=== PATIENT | female | born 1940 | race Caucasian/White ===

== ENCOUNTER 2016-06-11 00:43 | Emergency (ER) | payer MEDICARE, MEDICAID ==
[~2016-06-11] VITALS: Ht 157.5 cm; Wt 56.7 kg
[~2016-06-11 00:43] MED LIST: AC325T PO; ALN70T PO; AMLO5TAB2 PO; ATEN-147 GT; ATEN50TA PO; ATOR20TA66 PO; BENZ200C25 PO; CALC-20 PO; DCS100C PO; DEXT1DRO7 OU; DIPH25TA82 PO; DONE5TAB8 PO; EZET10TA5 PO; EZET1TAB27 PO; FAMO20TA13 PO; FURO20TA4 PO; HYDR-3857 PO; HYDR118S10 PO; HYDR1TAB PO; Hydrocodone Bit/Acetaminophen PO; INSASP10V IM; INSASP10V SQ; LANS15CA5 PO; LEVE500T6 PO; LEVO500T80 PO; LEVO50TA63 PO; LEVO75TA6 PO; LIRA0.6P3 SQ; LOSA1TAB3 PO; LSRT50T PO; LVT.15T PO; MAGN-47 PO; MELO7.5T PO; METF1000 PO; METF500T4 PO; MTF500T PO; NITR-65 PO; OMEP20CA12 PO; PGLT30T PO; ROSI2TAB11 PO; SCR1T1 PO; SENN1TAB76 PO; SITA100T PO; SMV20T PO; TRAM50TA2 PO; ZLP5T PO; [UNRECOGNIZED DRUG - CODE] IJ
--- OUTSIDE RECORDS SUMMARY | 2016-06-11 00:49 | XMS REPORT | Continuity of Care Document ---
Author Author 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 If you do not see the information that you expected, contact Release of Information in the Health Information Management department at [phone] for further assistance in locating additional records.[facility] Active Allergies and Adverse Reactions Allergen Noted Date Severity Reactions Comments Aspirin 11/19/2011 STOMACH UPSET Ibuprofen 11/19/2011 HIVES Lisinopril 11/20/2011 COUGH Current Medications Prescription Sig. Disp. Refills Start End Date Status Date levothyroxine (SYNTHROID) Take 150 mcg by mouth Active 150 mcg tablet daily. sitaGLIPtin (JANUVIA) 100 Take 100 mg by mouth Active mg Tab tablet daily. calcium carbonate/vitamin Take 1 Tab by mouth three Active D-3 (OSCAL-500+D) 1250 times daily with meals. mg/200 unit tablet Calcium Carb 1250mg delivers 500mg elemental Ca alendronate (FOSAMAX) 70 Take 70 mg by mouth every Active mg tablet 7 days. Acetaminophen 650 mg Tab Take 1 Tab by mouth every 30 Tab 11/23/19 Active 4 hours as needed. 12 levETIRAcetam (KEPPRA) Take 1 Tab by mouth twice 11/23/19 Active 500 mg tablet daily. 12 HYDROcodone/acetaminophen Take 1 Tab by mouth every 30 Tab 0 11/23/19 Active (VICODIN) 5/500 mg tablet 4 hours as needed for 12 Pain. diphenhydrAMINE Take 1 Cap by mouth every 30 Cap 11/23/19 Active (BENADRYL) 25 mg capsule 4 hours as needed. 12 metformin (GLUCOPHAGE) Take 1 Tab by mouth twice 180 Tab 11/23/19 Active 1,000 mg tablet daily with meals. 12 artificial Apply 1 Drop to both eyes 11/23/19 Active tears/hypromellose four times daily. 12 (ISOPTO TEARS) 0.5 % ophthalmic solution HEPARIN SODIUM,PORCINE/PF Inject 0.5 mL into 11/23/19 Active (HEPARIN (PORCINE) PF) area(s) as directed every 12 5,000 units Syrg 8 hours. famotidine (PEPCID) 20 mg Take 1 Tab by mouth twice 180 Tab 11/23/19 Active tablet daily. 12 insulin aspart (NOVOLOG) Inject 2-14 Units into 3 box 11/23/19 Active 100 unit/mL area(s) as directed as 12 Needed (correlation with ACHS or q6h POC glucose checks). insulin aspart (NOVOLOG) Inject 4-16 Units into 3 box 11/23/19 Active 100 unit/mL area(s) as directed three 12 times daily with meals. docusate (COLACE) 100 mg Take 1 Cap by mouth twice 180 Cap 11/23/19 Active capsule daily. 12 milk of magnesia (CONC) Take 10 mL by mouth 11/23/19 Active 2,400 mg/10 mL oral daily. 12 suspension senna/docusate Take 1 Tab by mouth twice 11/23/19 Active (SENOKOT-S) 8.6/50 mg daily. 12 tablet ezetimibe (ZETIA) 10 mg Take 1 Tab by mouth at 90 Tab 3 11/23/19 Active tablet bedtime daily. 12 simvastatin (ZOCOR) 20 mg Take 1 Tab by mouth at 90 Tab 3 11/23/19 Active tablet bedtime daily. 12 Active Problems Problem Noted Date HTN (hypertension) 11/19/2011 DM (diabetes mellitus) ([facility]) 11/19/2011 Hypothyroidism 11/19/2011 SDH (subdural hematoma) ([facility]) 11/19/2011 Overview: Social History Tobacco Use Types Packs/Day Years Used Date Never Smoker Alcohol Use Drinks/Week oz/Week Comments No Last Filed Vital Signs Vital Sign Reading Time Taken Blood Pressure 122/72 11/23/2011 7:00 AM CDT Pulse 57 11/23/2011 7:00 AM CDT Temperature 36.7 C (98 F) 11/23/2011 7:00 AM CDT Respiratory Rate - - Height 1.575 m (5' 2.01") 11/20/2011 3:20 PM CDT Weight 73.029 kg (161 lb) 11/20/2011 3:20 PM CDT Body Mass Index 29.44 11/20/2011 3:20 PM CDT Oxygen Saturation 97% 11/23/2011 7:00 AM CDT Plan of Care Health Maintenance Due Date Last Done Comments Physical (Comprehensive) 1949 Exam Pertussis Vaccine 1953 Tetanus Vaccine 1959 Dilated Eye Exam 1960 Foot Exam 1960 Microalbumin 1960 Breast Cancer Screening 1982 Colorectal Cancer 1992 Screening Shingles Vaccine 2002 Osteoporosis Screening 2007 Prevnar/Pneumovax (#1) 2007 Hba1c 05/21/2012 11/20/2011 Influenza Vaccine 02/02/2016 Results from Last 3 Months Not on file
[2016-06-11] MEDS ORDERED: ALBU2.5V4 (00:51)
[2016-06-11] MEDS ORDERED: AZIT250T5 (00:51)
[2016-06-11] MEDS ORDERED: fentaNYL INJECTION 100 MCG/2 ML AMP IVP ONE (01:00)
[2016-06-11 01:07] LABS: BASOPHILS # (AUTO) 0.1 10^3/uL (0.0-0.1); BASOPHILS % (AUTO) 1 % (0-10); EOSINOPHILS # (AUTO) 0.5 10^3/uL (0.0-0.3); EOSINOPHILS % (AUTO) 7 % (0-10); LYMPHOCYTES # (AUTO) 2.6 X 10^3 (1.0-4.0); LYMPHOCYTES % (AUTO) 33 % (12-44); MEAN CORPUSCULAR HEMOGLOBIN 31 PG (25-34); MEAN CORPUSCULAR HGB CONC 36 G/DL (32-36); MEAN CORPUSCULAR VOLUME 86 FL (80-99); MEAN PLATELET VOLUME 10.3 FL (7.4-10.4); MONOCYTES # (AUTO) 0.9 X 10^3 (0.0-1.0); MONOCYTES % (AUTO) 11 % (0-12); NEUTROPHILS # (AUTO) 3.9 X 10^3 (1.8-7.8); NEUTROPHILS % (AUTO) 49 % (42-75); PLATELET COUNT 361 10^3/uL (130-400); RED BLOOD COUNT 4.27 10^6/uL (4.35-5.85); RED CELL DISTRIBUTION WIDTH 12.1 % (10.0-14.5); WHITE BLOOD COUNT 7.9 10^3/uL (4.3-11.0)
[2016-06-11 01:23] LABS: ALANINE AMINOTRANSFERASE 10 U/L (0-55); ALBUMIN 3.9 G/DL (3.2-4.5); ANION GAP 11 MMOL/L (5-14); ASPARTATE AMINO TRANSFERASE 13 U/L (5-34); BILIRUBIN,TOTAL 0.3 MG/DL (0.1-1.0); BLOOD UREA NITROGEN 10 MG/DL (7-18); BUN/CREATININE RATIO 11; CALCIUM 9.1 MG/DL (8.5-10.1); CARBON DIOXIDE 24 MMOL/L (21-32); CHLORIDE 92 MMOL/L (98-107); CREATININE SERUM 0.88 MG/DL (0.60-1.30); GFR ESTIMATED > 60; GLUCOSE 226 MG/DL (70-105); POTASSIUM 4.1 MMOL/L (3.6-5.0); SODIUM 127 MMOL/L (135-145); TOTAL PROTEIN 7.1 G/DL (6.4-8.2)
[2016-06-11 01:59] LABS: THYROID STIMULATING HORMONE 43.21 UIU/ML (0.35-4.94)
[2016-06-11] MEDS ORDERED: NS IV 500 ML 500 ML IV ONE (02:30)
[2016-06-11] MEDS ORDERED: ACETAMINOPHEN 325 MG TABLET/CAPLET (TYLENOL) PO ONE (02:45)
[2016-06-11] MEDS ORDERED: amLODIPine 5 MG (NORVASC) TAB PO ONE (02:45)
[2016-06-11 03:48] LABS: BILIRUBIN,URINE NEGATIVE (NEGATIVE); KETONES,URINE NEGATIVE (NEGATIVE); LEUKOCYTE ESTERASE ,URINE 3+ (NEGATIVE); NITRITE,URINE NEGATIVE (NEGATIVE); PH,URINE 6 (5-9); PROTEIN,URINE 3+ (NEGATIVE); UROBILINOGEN,URINE NORMAL (NORMAL)
[2016-06-11] MEDS ORDERED: cefTRIAXone 1 GM (ROCEPHIN) VIAL ONE (04:13)
[2016-06-11] MEDS ORDERED: NORMAL SALINE (BAXTER MINI) 50 ML IV ONE (04:13)
[2016-06-11] MEDS ORDERED: cefTRIAXone INJECTION 1,000 MG in NORMAL SALINE (BAXTER MINI) 50 ML IV ONE (04:15)
--- NOTE | 2016-06-11 04:26 | ED Fall/Injury ---
General Chief Complaint: Trauma-Non Activation Stated Complaint: FALL Nursing Triage Note: Patient brought from [facility] by EMS. patient fell while transferring self to W/C from her bed. patient unsure of LOC. Patient c/o head/neck and L shoulder pain. Patient a&0x3 on arrival. c-collar in place Source: patient, EMS, senior living records Exam Limitations: no limitations History of Present Illness Time seen by provider: 00:50 Initial Comments This 75-year-old woman presents to the emergency room from [facility] after injuring herself in a fall. She was transferring herself from bed to wheelchair. She hit her head and complains of neck pain and left shoulder pain. She is presently on antibiotics for pneumonia which were started on June 06. She is alert and oriented on assessment. C-collar is in place. She arrives by EMS. She is uncertain of loss of consciousness. Allergies and Home Medications Allergies Coded Allergies: Iodinated Contrast Media - IV Dye (Verified Allergy, Intermediate, hives, 11/23/11) ibuprofen (Verified Allergy, Mild, UPSET STOMACH, 11/26/11) gabapentin (Verified Allergy, Unknown, 05/20/13) lisinopril (Verified Allergy, Unknown, 12/03/05) aspirin (Verified Adverse Reaction, Intermediate, anaphylactic, 11/23/11) Home Medications Acetaminophen 325 Mg Tablet 650 MG PO Q4H PRN PRN PAIN (Reported) TAKES 2 (325MG) TABLETS Albuterol Sulfate 2.5 Mg/3 Ml Vial.neb #90 (Reported) Amlodipine Besylate 5 Mg Tablet #30 5 MG PO DAILY Prescribed by: NALLELY HURST on 08/24/15 1348 Amlodipine Besylate 5 Mg Tablet #30 5 MG PO DAILY Prescribed by: COBY WHITE on 06/11/16 0427 Atenolol 50 Mg Tablet #60 100 MG PO DAILY Prescribed by: NALLELY HURST on 08/24/15 1348 Azithromycin 250 Mg Tablet #6 (Reported) Cephalexin 500 Mg Capsule #30 500 MG PO TID Prescribed by: COBY WHITE on 06/11/16 0427 Docusate Sodium 100 Mg Capsule 100 MG PO BID PRN PRN CONSTIPATION (Reported) Donepezil HCl 5 Mg Tablet #30 5 MG PO HS Prescribed by: NALLELY HURST on 08/24/15 1348 Levothyroxine Sodium 75 Mcg Tablet 75 MCG PO DAILY (Reported) Liraglutide 0.6 Mg/0.1 Ml Pen.injctr 1.2 MG SQ DAILY (Reported) Metformin HCl 500 Mg Tablet 500 MG PO BID (Reported) Senna 1 Ea Tablet 1 TAB PO BID PRN PRN CONSTIPATION (Reported) Constitutional: no symptoms reported Eyes: No Symptoms Reported Ears, Nose, Mouth, Throat: no symptoms reported Respiratory: see HPI Cardiovascular: no symptoms reported Gastrointestinal: no symptoms reported Genitourinary: no symptoms reported Musculoskeletal: see HPI Skin: no symptoms reported Past Ufjtbce-Lpjtzk-Xudoot Hx Patient Social History Alcohol Use: Denies Use Recreational Drug Use: No Smoking Status: Never a Smoker Former Smoker/When Quit: Jun 03, 1962 Recent Foreign Travel: No Contact w/Someone Who Travel: No Recent Infectious Disease Expo: No Recent Hopitalizations: Yes Physical Abuse Screen: No Sexual Abuse: No Immunizations Up To Date Tetanus Booster (TDap): Less than 5yrs Date of Pneumonia Vaccine: Mar 03, 2013 Seasonal Allergies Seasonal Allergies: No Surgeries HX Surgeries: Yes (CARPAL TUNNEL, CARDIAC CATH-STENT PLACEMENT, cataracts) Surgeries: Appendectomy, Cardiac, Coronary Stent, Gallbladder, Hysterectomy, Orthopedic Respiratory Hx Respiratory Disorders: Yes Respiratory Disorders: Pneumonia Cardiovascular Hx Cardiac Disorders: Yes (cardiac stent) Cardiac Disorders: Coronary Artery Disease, High Cholesterol, Hypertension Neurological Hx Neurological Disorders: Yes (SUBDURAL HEMATOMA 2011--NO SURGERY) Neurological Disorders: Stroke Reproductive System Hx Reproductive Disorders: No Genitourinary Hx Genitourinary Disorders: Yes Genitourinary Disorders: UTI-Chronic Gastrointestinal Hx Gastrointestinal Disorders: Yes Gastrointestinal Disorders: Gastroesophageal Reflux, Chronic Constipation, Ulcer Musculoskeletal Hx Musculoskeletal Disorders: Yes (arm fx as child, compression fracture of T11 ) Musculoskeletal Disorders: Osteoporosis, Arthritis, Chronic Back Pain, Fractures Endocrine Hx Endocrine Disorders: Yes Endocrine Disorders: Diabetes, Insulin dep, Hypothyroidsim HEENT HX ENT Disorders: Yes (cataracts removed) HEENT Disorders: Cataract Cancer Hx Cancer: No Psychosocial Hx Psychiatric Problems: No Integumentary HX Skin/Integumentary Disorder: No Blood Transfusions Hx Blood Disorders: No Family Medical History Significant Family History: No Pertinent Family Hx Family Medial History: Physical Exam Vital Signs Capillary Refill : Less Than 3 Seconds General Appearance: WD/WN no apparent distress HEENT: normal ENT inspection pharynx normal Neck: non-tender normal inspection other (c-collar in place) Cardiovascular: regular rate, rhythm no edema no murmur Respiratory: lungs clear normal breath sounds no respiratory distress no accessory muscle use Gastrointestinal: normal bowel sounds non tender soft Back: normal inspection vertebral tenderness (scattered tenderness over the spine, exacerbation of chronic) Extremities: other (soreness in the left shoulder but good active range of motion) Neurologic/Psychiatric: graphite pan drier tender II-XII nml as tested no motor/sensory deficits alert normal mood/affect oriented x 3 Skin: normal color warm/dry Skyla Coma Score Best Eye Response: (4) Open Spontaneously Best Verbal Response: (5) Oriented Best Motor Response: (6) Obeys Commands [place] Total: 15 Progress/Results/Core Measures Results/Orders Lab Results Laboratory Tests Test 06/11/16 00:51 06/11/16 03:43 Range/Units Alanine Aminotransferase (ALT/SGPT) 10 0-55 U/L Albumin 3.9 3.2-4.5 G/DL Alkaline Phosphatase 60 40-136 U/L Anion Gap 11 5-14 MMOL/L Aspartate Amino Transf (AST/SGOT) 13 5-34 U/L BUN/Creatinine Ratio 11 Basophils # (Auto) 0.1 0.0-0.1 10^3/uL Basophils (%) (Auto) 1 0-10 % Blood Urea Nitrogen 10 7-18 MG/DL Calcium Level 9.1 8.5-10.1 MG/DL Carbon Dioxide Level 24 21-32 MMOL/L Chloride Level 92 L 98-107 MMOL/L Creatinine 0.88 0.60-1.30 MG/DL Eosinophils # (Auto) 0.5 H 0.0-0.3 10^3/uL Eosinophils (%) (Auto) 7 0-10 % Estimat Glomerular Filtration Rate > 60 Free Thyroxine 0.90 0.70-1.48 NG/DL Glucose Level 226 H 70-105 MG/DL Hematocrit 37 35-52 % Hemoglobin 13.3 11.5-16.0 G/DL Lymphocytes # (Auto) 2.6 1.0-4.0 X 10^3 Lymphocytes (%) (Auto) 33 12-44 % Mean Corpuscular Hemoglobin 31 25-34 PG Mean Corpuscular Hemoglobin Concent 36 32-36 G/DL Mean Corpuscular Volume 86 80-99 FL Mean Platelet Volume 10.3 7.4-10.4 FL Monocytes # (Auto) 0.9 0.0-1.0 X 10^3 Monocytes (%) (Auto) 11 0-12 % Neutrophils # (Auto) 3.9 1.8-7.8 X 10^3 Neutrophils (%) (Auto) 49 42-75 % Platelet Count 361 130-400 10^3/uL Potassium Level 4.1 3.6-5.0 MMOL/L Red Blood Count 4.27 L 4.35-5.85 10^6/uL Red Cell Distribution Width 12.1 10.0-14.5 % Sodium Level 127 L 135-145 MMOL/L Thyroid Stimulating Hormone (TSH) 43.21 H 0.35-4.94 UIU/ML Total Bilirubin 0.3 0.1-1.0 MG/DL Total Protein 7.1 6.4-8.2 G/DL White Blood Count 7.9 4.3-11.0 10^3/uL Urine Bacteria FEW H /HPF Urine Bilirubin NEGATIVE NEGATIVE Urine Casts NONE /LPF Urine Clarity CLEAR Urine Color YELLOW Urine Crystals NONE /LPF Urine Culture Indicated YES Urine Glucose (UA) 2+ H NEGATIVE Urine Ketones NEGATIVE NEGATIVE Urine Leukocyte Esterase 3+ H NEGATIVE Urine Mucus NEGATIVE /LPF Urine Nitrite NEGATIVE NEGATIVE Urine Protein 3+ H NEGATIVE Urine RBC 0-2 /HPF Urine RBC (Auto) NEGATIVE NEGATIVE Urine Specific [place] 1.015 L 1.016-1.022 Urine Squamous Epithelial Cells 10-25 H /HPF Urine Urobilinogen NORMAL NORMAL MG/DL Urine WBC 10-25 H /HPF Urine pH 6 5-9 Micro Results Microbiology 06/11/16 Urine Culture - Final, Complete Streptococcus Viridans My Orders Orders-COBY PARRY MD Saline Lock/Iv-Start (06/11/16 01:00) Ct Head/Cervical Spine Wo (06/11/16 01:00) Cbc With Automated Diff (06/11/16 01:00) Comprehensive Metabolic Panel (06/11/16 01:00) Ua Culture If Indicated (06/11/16 01:00) Chest 1 View, Ap/Pa Only (06/11/16 01:00) Pelvis (06/11/16 01:00) Fentanyl Injection (Sublimaze Injection (06/11/16 01:00) Ct Thoracic/Lumbar Spine Wo (06/11/16 01:21) Thyroid Stimulating Hormone (06/11/16 01:22) Free T4 (Free Thyroxine) (06/11/16 01:22) Ns Iv 500 Ml (Sodium Chloride 0.9%) (06/11/16 02:30) Acetaminophen Tablet/Caplet (Tylenol T (06/11/16 02:45) Amlodipine Tablet (Norvasc Tablet) (06/11/16 02:45) Urine Culture (06/11/16 03:43) Ceftriaxone Injection (Rocephin Injectio (06/11/16 04:15) Ceftriaxone Injection (Rocephin Injectio (06/11/16 04:13) Normal Saline ([place] Mini) (Ns ([place] (06/11/16 04:13) Iv Infusion <= First Hr Ed (06/11/16 ) Medications Given in ED Vital Signs/I&O Blood Pressure Mean: 151 Progress Note : Progress Note Patient's imaging failed to reveal any evidence of acute bony injury or intracranial injury. Pain was treated with fentanyl. Patient was able to ambulate to the bathroom. Amlodipine was ordered for treatment of her hypertensive urgency. Blood pressure was improving before dismissal. Patient had mild hyponatremia and was treated with IV normal saline. Urinary tract infection was treated with Rocephin to be followed by Crista. Incidental adrenal nodule was noted on CT. Thyroid dysfunction was noted. Diagnostic Imaging Diagonstic Imaging: CT Plain Films/CT/US/NM/MRI: c-spine, head Comments CT head and C-spine viewed by me and stat rad report reviewed. No bony or intracranial injury identified. Diagonstic Imaging: CT Plain Films/CT/US/NM/MRI: other (spine) Comments Spine CT viewed by me and stat rad report reviewed. No acute injuries identified. Diagonstic Imaging: Xray Plain Films/CT/US/NM/MRI: chest Comments Chest x-ray viewed by me. Report not yet available. No acute abnormalities appreciated. Diagonstic Imaging: Xray Plain Films/CT/US/NM/MRI: pelvis Comments Pelvis x-ray viewed by me. Report not yet available. No acute abnormalities appreciated. Departure Impression Impression: Primary Impression: Fall on same level Qualified Code: W18.30XA - Fall on same level, unspecified, initial encounter Additional Impressions: Minor head injury Qualified Code: S00.90XA - Unspecified superficial injury of unspecified part of head, initial encounter Urinary tract infection Qualified Code: N39.0 - Urinary tract infection, site not specified Exacerbation of chronic back pain Hypertensive urgency Hyponatremia Thyroid dysfunction incidental adrenal nodule Disposition: HOME, SELF-CARE Condition: Improved Departure-Patient Inst. Decision time for Depature: 04:15 Referrals: NO,LOCAL PHYSICIAN (PCP/Family) Primary Care Physician Patient Instructions: Minor Head Injury (DC), Urinary Tract Infections in Adults Add. Discharge Instructions: Complete your antibiotics as prescribed. Have your primary care provider's office review your urine cultures in 48 hours. Your primary care provider's office also needs to review your labs and make any necessary medication changes. Start Norvasc as prescribed. Return to emergency room with worsening symptoms. All discharge instructions reviewed with patient and/or family. Voiced understanding. Scripts Cephalexin (Keflex)500 Mg [id number] Mg PO TID #30 CAP Prov:COBY PARRY MD 06/11/16 Amlodipine Besylate (Norvasc)5 Mg Tablet5 Mg PO DAILY #30 TAB Prov:COBY PARRY MD 06/11/16 Copy Copies To 1: KAYLEE BATISTA MD, JOSHUA T MD Jun 11, 2016 04:26
[2016-06-11] MEDS ORDERED: AMLO5TAB4 PO (04:27)
[2016-06-11] MEDS ORDERED: CEPH-507 PO (04:27)
[2016-06-11 04:55] VITALS: BP 183/79
--- NOTE | 2016-06-11 06:11 | Diagnostic Imaging Report ---
Clinical indication: Patient status post fall while transferring self to wood chair from bed. Unsure of loss of consciousness. Patient complains of head and neck pain and left shoulder pain. Exam: Head CT without IV contrast. Axial CT scan of the cervical spine with sagittal and coronal reformations. Comparison: CT scan of the head and cervical spine without IV contrast dated 08/21/2015. Findings: Head CT: There is no evidence of acute cerebral infarct, intracranial hemorrhage, or gross mass effect. 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 Again seen patchy confluent areas of low-attenuation white matter changes throughout both cerebral hemispheres, likely representing chronic small vessel ischemic disease. There is normal colon-white matter distinction. The brain parenchymal volume appears appropriate for patient's age. There is no significant midline shift or herniation. There is no evidence of hydrocephalus. The basal cisterns are unremarkable. The skull, extracranial soft tissue, and orbits are unremarkable. There is mild mucosal thickening involving both maxillary sinuses, and ethmoid sinus. Cervical spine: There is no evidence of acute cervical spine fracture or dislocation. There is stable degenerative spurs involving the cervical spine with posterior disc osteophyte complexes seen from the C2-C6 levels. There is at least mild to moderate central canal narrowing. Prominent slime-odontoid pannus is again seen. There is no prevertebral soft tissue swelling. The visualized lung apices are unremarkable. Impression: 1: Stable CT scan of the brain with no evidence of acute intracranial process. 2: Stable cervical spine degenerative disease with no acute fracture or dislocation. I agree with [employer] report. Dictated by: Dictated on workstation # [id number]
--- NOTE | 2016-06-11 07:36 | Diagnostic Imaging Report ---
Clinical indication: Patient fell while transferring self into wheelchair from bed. Exam: Axial CT scan of the thoracic and lumbar spine performed without IV contrast. Sagittal and coronal reformations were performed. Bone and soft tissue windows were created. Comparison: X-ray of the thoracic and lumbar spine dated 04/28/2014. Findings: There is no acute thoracic or lumbar fracture or dislocation. There is chronic compression fracture deformity of the T11 vertebral body which demonstrates roughly 25% loss of height. There is also roughly 2 mm of retropulsion of the upper T11 vertebral body causing mild central canal stenosis. There are moderately hypertrophic spurs seen throughout the thoracic spine. There is also bilateral facet arthropathy. Besides the T10-T11 level, there is no significant central canal narrowing. There are areas of mild neural foramen narrowing involving the mid to lower thoracic spine. There is lumbar spine degenerative disease with hypertrophic spurs anteriorly which is worse at the L2-3 level. There is endplate irregularity and moderate loss of intervertebral disc height at the L2-3 level with suggestion of diffuse disc bulge. There is at least mild to moderate central canal narrowing and moderate to severe right neural foramen narrowing, and mild to moderate left neural foramen narrowing at the L2-3 level. There is mild to moderate L4-L5 bilateral neural foramen narrowing. There is L4-5 laminectomy changes seen. There is multilevel facet arthropathy. There is moderate to severe loss of intervertebral disc height at the L5-S1 level. There is no significant paraspinal soft tissue abnormality. There is degenerative sclerosis of both sacroiliac joints. There is mild dependent atelectasis involving both lung bases. There is colonic diverticula with no CT evidence of diverticulitis. Hiatal hernia seen. Otherwise, the visualized portions of the mediastinum, abdomen and pelvis show no significant abnormality. Impression: 1: There is no evidence of acute thoracic spine or lumbar spine fracture or dislocation. 2: There is a chronic compression deformity of the T11 vertebral body. 3: There is multilevel thoracic and lumbar spine degenerative disease. I agree with [employer] report. Dictated by: Dictated on workstation # [id number]
--- NOTE | 2016-06-11 07:42 | Diagnostic Imaging Report ---
CLINICAL INDICATION: Patient status post fall while transferring self to wheelchair from bed. Patient unsure of loss of consciousness. Exam: X-ray of the pelvis AP view. Comparison: None. FINDINGS: There is osteopenia and bowel gas which limits evaluation of bony detail. There is no evidence of acute fracture or dislocation. There are chronic bony healing changes of the right superior and inferior pubic rami regions. Sacroiliac joints are unremarkable. There are degenerative spurs involving the lower lumbar spine. Visualized portion of the pelvis and sacrum are unremarkable. IMPRESSION: 1: Limited exam due to overlying bowel gas and osteopenia. 2: There is no gross evidence of acute fracture or dislocation. Dictated by: Dictated on workstation # [id number]
--- NOTE | 2016-06-11 07:43 | Diagnostic Imaging Report ---
CLINICAL INDICATION: Patient status post fall when trying to transfer self to wheelchair from bed. EXAM: Portable chest x-ray upright view. COMPARISONS: Chest x-ray dated 08/21/2015. FINDINGS: Lungs/pleura: Stable calcified granuloma overlying the left lower lung field. Otherwise, lungs are clear. There is no pneumothorax. There is no pleural effusion. Mediastinum: Unremarkable. Pulmonary vasculature: Unremarkable. Heart: Unremarkable. Bones/extrathoracic soft tissue: There are hypertrophic spurs seen throughout the spine. IMPRESSION: Stable chest x-ray exam with no interval radiographic evidence of acute cardiopulmonary process or acute traumatic finding. Dictated by: Dictated on workstation # [id number]
== END 2016-06-11 04:56 ==
LOC: EDUNIT# 00:43 → ER 00:45
DX: S09.90XA Unspecified injury of head, initial encounter (principal); S19.9XXA Unspecified injury of neck, initial encounter; N39.0 Urinary tract infection, site not specified; I16.0 Hypertensive urgency; E87.1 Hypo-osmolality and hyponatremia; M47.812 Spondylosis without myelopathy or radiculopathy, cervical region; M47.814 Spondylosis without myelopathy or radiculopathy, thoracic region; M47.816 Spondylosis without myelopathy or radiculopathy, lumbar region; G89.29 Other chronic pain; E11.9 Type 2 diabetes mellitus without complications; Z79.84 Long term (current) use of oral hypoglycemic drugs; Z79.899 Other long term (current) drug therapy; Z95.5 Presence of coronary angioplasty implant and graft; W05.0XXA Fall from non-moving wheelchair, initial encounter; Y92.122 Bedroom in nursing home as the place of occurrence of the external cause; Y99.8 Other external cause status
CPT/HCPCS: 36415; 70450; 71010; 72125; 72128; 72131; 72170; 80053; 81000; 84439; 84443; 85025; 87088; 96361; 96365; 96375

== ENCOUNTER 2016-09-13 20:00 | Emergency (ER) | payer MEDICARE, MEDICAID ==
[~2016-09-13] VITALS: Ht 157.5 cm; Wt 72.6 kg
[~2016-09-13 20:00] MED LIST changes: +ALBU2.5V4; +AMLO5TAB4 PO; +AZIT250T5; +CEPH-507 PO
--- NOTE | 2016-09-13 20:52 | Diagnostic Imaging Report ---
INDICATION: Fall with pelvic pain. TECHNIQUE: AP pelvis obtained at 8:50 p.m. FINDINGS: There is osteopenia. There is no acute fracture or acute bony abnormality. There is no change from 06/11/2016. IMPRESSION: No acute abnormality in the pelvis. Dictated by: Dictated on workstation # [id number]
--- NOTE | 2016-09-13 20:53 | Diagnostic Imaging Report ---
INDICATION: Fall with left-sided chest pain. TECHNIQUE: Frontal chest obtained at 8:49 p.m. FINDINGS: Heart is mildly enlarged. The lungs are clear. There is no pneumothorax or pleural fluid. There is a calcified granuloma in the left lung base. The findings are stable when compared with 06/11/2016. IMPRESSION: Cardiomegaly. No acute infiltrate or edema. Stable calcified granuloma in the left lung base. Dictated by: Dictated on workstation # [id number]
--- NOTE | 2016-09-13 20:57 | Diagnostic Imaging Report ---
INDICATION: Fall with head and neck pain. EXAMINATION: CT of the head and cervical spine without contrast. CT BRAIN FINDINGS: Noncontrast brain CT was performed. There are mild diffuse atrophic changes and mild chronic changes in the deep white matter. There is no acute hemorrhage or mass effect or acute appearing intracranial abnormality. Calvarial windows show no fracture. CT CERVICAL SPINE FINDINGS: Axial slices were obtained with sagittal and coronal reconstructions, without contrast. There is no evidence of cervical spine fracture. There are diffuse facet degenerative changes throughout the cervical spine. There is no subluxation or malalignment. IMPRESSION: 1. CT brain shows mild atrophy and mild chronic change in the deep white matter with no acute intracranial abnormality or calvarial fracture. 2. CT cervical spine demonstrates multilevel facet degenerative change throughout the cervical spine with no acute fracture or subluxation. Dictated by: Dictated on workstation # [id number]
--- NOTE | 2016-09-13 21:06 | Diagnostic Imaging Report ---
INDICATION: Status post fall with back pain. EXAMINATION: CT thoracic and lumbar spine was obtained with axial slices, without contrast, and sagittal and coronal reconstructions. FINDINGS: In the lumbar region, the patient has had previous laminectomy at L4 and L5. There is disc space narrowing at L5-S1 and L2-L3. There is facet degenerative change throughout the lumbar region. There is no acute bony abnormality in the lumbar region. There is an incidental vertebral body hemangioma at T10. There is loss of height of T11 without definite fracture line, this is probably chronic. There is diffuse mild osteophyte formation throughout the thoracic region. Compared to the previous study of 06/11/16, these findings are unchanged. The loss of height at T11 does appear chronic. IMPRESSION: Degenerative findings throughout the thoracic and lumbar spine, as above. Old loss of height of T11 which is stable from 06/11/16. Incidental vertebral body hemangioma at T10. Postop findings in the lower lumbar spine, as above. No acute abnormality. Dictated by: Dictated on workstation # [id number]
--- NOTE | 2016-09-13 21:21 | ED Fall/Injury ---
General Chief Complaint: Trauma-Non Activation Stated Complaint: FALL Nursing Triage Note: SEE NON-TRAUMA ACTIVATION Source: patient (PT IS LIMITED HISTORIAN--PT WITH DEMENTIA), EMS, shelter records History of Present Illness Time seen by provider: 20:01 Initial Comments PT ARRIVES VIA EMS FROM [facility] IN [facility] [place] PT WAS IN BATHROOM AND WAS SQUATTING , AND FELL FORWARD HITTING HER FOREHEAD, ON UNKNOWN SURFACE EPISODE WAS NOT WITNESSED, PT THINKS SHE WAS UNCONSCIOUS FOR "1 MINUTE"--PT WAS DOWN ON FLOOR FOR APPROXIMATELY 30 MINUTES HAS HEMATOMA AND ABRASION TO RIGHT FOREHEAD/FRONTAL AREA PT HAS CHRONIC NECK AND BACK PAIN AND GENERALIZED PAIN. PT DOES NOT THINK HER NECK IS ANY WORSE THAN NORMAL AT THIS TIME NO PARESTHESIAS OR MOTOR DEFICITS NO VISION CHANGES NO DIZZINESS NO NAUSEA/VOMITING Location Injury Occurred: [place] PCP: DR BATISTA Allergies and Home Medications Allergies Coded Allergies: Iodinated Contrast Media - IV Dye (Verified Allergy, Intermediate, hives, 11/23/11) ibuprofen (Verified Allergy, Mild, UPSET STOMACH, 11/26/11) gabapentin (Verified Allergy, Unknown, 05/20/13) lisinopril (Verified Allergy, Unknown, 12/03/05) aspirin (Verified Adverse Reaction, Intermediate, anaphylactic, 11/23/11) Home Medications Acetaminophen 325 Mg Tablet, 650 MG PO Q4H PRN for PAIN, (Reported) TAKES 2 (325MG) TABLETS Albuterol Sulfate 2.5 Mg/3 Ml Vial.neb, #90 (Reported) Amlodipine Besylate 5 Mg Tablet, 5 MG PO DAILY, #30 Prescribed by: NALLELY HURST on 08/24/15 1348 Amlodipine Besylate 5 Mg Tablet, 5 MG PO DAILY, #30 Prescribed by: COBY WHITE on 06/11/16 0427 Atenolol 50 Mg Tablet, 100 MG PO DAILY, #60 Prescribed by: NALLELY HURST on 08/24/15 1348 Azithromycin 250 Mg Tablet, #6 (Reported) Cephalexin 500 Mg Capsule, 500 MG PO TID, #30 Prescribed by: COBY WHITE on 06/11/16 0427 Docusate Sodium 100 Mg Capsule, 100 MG PO BID PRN for CONSTIPATION, (Reported) Donepezil HCl 5 Mg Tablet, 5 MG PO HS, #30 Prescribed by: NALLELY HURST on 08/24/15 1348 Levothyroxine Sodium 75 Mcg Tablet, 75 MCG PO DAILY, (Reported) Liraglutide 0.6 Mg/0.1 Ml Pen.injctr, 1.2 MG SQ DAILY, (Reported) Metformin HCl 500 Mg Tablet, 500 MG PO BID, (Reported) Senna 1 Ea Tablet, 1 TAB PO BID PRN for CONSTIPATION, (Reported) Constitutional: no symptoms reported Eyes: No Symptoms Reported Ears, Nose, Mouth, Throat: no symptoms reported Respiratory: no symptoms reported Cardiovascular: no symptoms reported Gastrointestinal: no symptoms reported Genitourinary: no symptoms reported Musculoskeletal: see HPI Skin: see HPI Psychiatric/Neurological: See HPI Past Vjpjret-Cucwri-Cvorad Hx Patient Social History Alcohol Use: Denies Use Recreational Drug Use: No Smoking Status: Former Smoker Former Smoker/When Quit: Jun 03, 1962 Recent Foreign Travel: No Contact w/Someone Who Travel: No Recent Infectious Disease Expo: No Recent Hopitalizations: Yes Immunizations Up To Date Tetanus Booster (TDap): Less than 5yrs Date of Pneumonia Vaccine: Mar 03, 2013 Seasonal Allergies Seasonal Allergies: No Surgeries HX Surgeries: Yes (CARPAL TUNNEL, CARDIAC CATH-STENT PLACEMENT, CATARACTS) Surgeries: Appendectomy, Cardiac, Coronary Stent, Eye Surgery, Gallbladder, Hysterectomy, Orthopedic Respiratory Hx Respiratory Disorders: Yes Respiratory Disorders: Pneumonia Cardiovascular Hx Cardiac Disorders: Yes (CARDIAC STENT) Cardiac Disorders: Coronary Artery Disease, High Cholesterol, Hypertension Neurological Hx Neurological Disorders: Yes (SUBDURAL HEMATOMA 2011--NO SURGERY) Neurological Disorders: Dementia, Stroke Reproductive System Hx Reproductive Disorders: No Genitourinary Hx Genitourinary Disorders: Yes Genitourinary Disorders: UTI-Chronic Gastrointestinal Hx Gastrointestinal Disorders: Yes Gastrointestinal Disorders: Gastroesophageal Reflux, Chronic Constipation, Ulcer Musculoskeletal Hx Musculoskeletal Disorders: Yes (arm fx as child, compression fracture of T11 ) Musculoskeletal Disorders: Osteoporosis, Arthritis, Chronic Back Pain, Fractures Endocrine Hx Endocrine Disorders: Yes Endocrine Disorders: Diabetes, Insulin dep, Hypothyroidsim HEENT HX ENT Disorders: Yes (cataracts removed) HEENT Disorders: Cataract Cancer Hx Cancer: No Psychosocial Hx Psychiatric Problems: No Integumentary HX Skin/Integumentary Disorder: No Blood Transfusions Hx Blood Disorders: No Family Medical History Significant Family History: No Pertinent Family Hx Family Medial History: Physical Exam Vital Signs Vital Sign - Last 12Hours 09/13/16 20:00 Temp 98.0 Pulse 0 Resp 18 B/P (MAP) 222/103 Pulse Ox 99 Capillary Refill : Less Than 3 Seconds General Appearance: WD/WN, no apparent distress HEENT: PERRL/EOMI, normal ENT inspection, TMs normal, pharynx normal, other ( LARGE HEMATOMA AND VERY MILD SUPERFICIAL ABRASION TO RIGHT FOREHEAD/FRONTAL AREA ) Neck: tender lateral, tender midline Cardiovascular: regular rate, rhythm, other (FREQUENT ECTOPY) Respiratory: normal breath sounds, no respiratory distress, no accessory muscle use Gastrointestinal: normal bowel sounds, non tender, soft Back: no CVA tenderness Extremities: normal range of motion, non-tender, normal inspection, no pedal edema, no calf tenderness, normal capillary refill Neurologic/Psychiatric: sourcing internship II-XII nml as tested, no motor/sensory deficits, alert, normal mood/affect, oriented x 3 Skin: normal color, warm/dry Victoria Coma Score Best Eye Response: (4) Open Spontaneously Best Verbal Response: (5) Oriented Best Motor Response: (6) Obeys Commands Victoria Total: 15 Progress/Results/Core Measures Results/Orders My Orders Orders - CHELSEY NEWMAN DO Ct Head/Cervical Spine Wo (09/13/16 20:06) Ct Thoracic/Lumbar Spine Wo (09/13/16 20:06) Chest 1 View, Ap/Pa Only (09/13/16 20:06) Pelvis (09/13/16 20:06) Vital Signs/I&O Vital Sign - Last 12Hours 09/13/16 09/13/16 20:00 21:27 Temp 98.0 98.0 Pulse 0 84 Resp 18 18 B/P (MAP) 222/103 Pulse Ox 99 99 Blood Pressure Mean: 142 Progress Note : Progress Note CERVICAL COLLAR REMOVED AT 2114 ON OBTAINING RADIOLOGIST REPORT ON CT SCANS NO DETERIORATION IN PT'S CONDITION DURING ER STAY Diagnostic Imaging Comments CT HEAD/CERVICAL SPINE--NO ACUTE PROCESS, CHRONIC DEGENERATIVE CHANGES CT THORACIC AND LUMBAR SPINE--NO ACUTE PROCESS, CHRONIC DEGENERATIVE CHANGES CXR--NO ACUTE PROCESS XRAYS PELVIS--NO ACUTE PROCESS Reviewed: Reviewed by Me Departure Impression Impression: Primary Impression: Closed head injury with brief loss of consciousness Additional Impressions: EXACERBATION OF CHRONIC NECK AND BACK PAIN Head contusion Status post fall Disposition: 03 XFER SNF Condition: Stable Departure-Patient Inst. Referrals: NO,LOCAL PHYSICIAN (PCP/Family) Primary Care Physician Patient Instructions: Cervical Muscle Strain (DC), Concussion, Adult (DC), Low Back Pain (DC), Preventing Falls in the Older Adult, Upper Back Pain (DC) Add. Discharge Instructions: ICE TO SORE AREAS AT 20 MINUTE INTERVALS TAKE YOUR HOME MEDICATIONS PRESCRIBED FOLLOW UP WITH YOUR DR NEEDED RETURN TO ER IF SYMPTOMS WORSEN All discharge instructions reviewed with patient and/or family. Voiced understanding. CHELSEY NEWMAN DO Sep 13, 2016 21:21
[2016-09-13 21:27] VITALS: BP 169/72
== END 2016-09-13 21:31 ==
LOC: EDUNIT# 20:00 → ER 20:03
DX: S00.81XA Abrasion of other part of head, initial encounter (principal); F03.90 Unspecified dementia, unspecified severity, without behavioral disturbance, psychotic disturbance, mood disturbance, and anxiety; M54.2 Cervicalgia; M54.5 Low back pain; G89.29 Other chronic pain; E11.9 Type 2 diabetes mellitus without complications; I10 Essential (primary) hypertension; I25.10 Atherosclerotic heart disease of native coronary artery without angina pectoris; Z79.84 Long term (current) use of oral hypoglycemic drugs; Z79.899 Other long term (current) drug therapy; Z95.5 Presence of coronary angioplasty implant and graft; Z86.73 Personal history of transient ischemic attack (TIA), and cerebral infarction without residual deficits; W18.12XA Fall from or off toilet with subsequent striking against object, initial encounter; Y92.121 Bathroom in nursing home as the place of occurrence of the external cause; Y99.8 Other external cause status
CPT/HCPCS: 70450; 71010; 72125; 72128; 72131; 72170; 99283

== ENCOUNTER → 2017-07-20 | Outpatient (CLI) | payer MEDICARE, MEDICAID ==
[~2017-07-20] MED LIST changes: +AZIT250T12; -AZIT250T5
== END ==
PROVIDERS: ATTEND Internal Medicine
DX: Z53.9 Procedure and treatment not carried out, unspecified reason (principal)
CPT/HCPCS: 81000; 87088

== ENCOUNTER → 2017-07-20 | Outpatient (CLI) | payer MEDICARE, MEDICAID ==
[2017-07-20 14:37] LABS: BILIRUBIN,URINE NEGATIVE (NEGATIVE); CLARITY,URINE VERY CLOUDY; COLOR,URINE YELLOW; GLUCOSE, URINE (UA) NEGATIVE (NEGATIVE); KETONES,URINE NEGATIVE (NEGATIVE); LEUKOCYTE ESTERASE ,URINE 2+ (NEGATIVE); NITRITE,URINE NEGATIVE (NEGATIVE); PH,URINE 5 (5-9); PROTEIN,URINE 2+ (NEGATIVE); UROBILINOGEN,URINE NORMAL (NORMAL)
[2017-07-20 14:48] LABS: BACTERIA,URINE LARGE /HPF; WBC,URINE 25-50 /HPF
== END ==
PROVIDERS: ATTEND Internal Medicine
DX: N39.0 Urinary tract infection, site not specified (principal)
CPT/HCPCS: 81000; 87088; 87186

== ENCOUNTER 2019-02-23 22:01 | Inpatient (IN) | payer MEDICARE, MEDICAID ==
[~2019-02-23] VITALS: Ht 162 cm; Wt 64.3 kg
[~2019-02-23 22:01] MED LIST changes: -AMLO5TAB2 PO; +AMLO5TAB9 PO; +METF-397 PO; -METF500T4 PO
[2019-02-23] MEDS ORDERED: hydrALAZINE (APESOLINE) 20 MG/ML VIAL IV ONE (22:30)
[2019-02-23 22:58] LABS: BILIRUBIN,URINE NEGATIVE (NEGATIVE); CLARITY,URINE VERY CLOUDY; COLOR,URINE YELLOW; GLUCOSE, URINE (UA) NEGATIVE (NEGATIVE); KETONES,URINE NEGATIVE (NEGATIVE); LEUKOCYTE ESTERASE ,URINE NEGATIVE (NEGATIVE); NITRITE,URINE NEGATIVE (NEGATIVE); PH,URINE 6 (5-9); PROTEIN,URINE NEGATIVE (NEGATIVE); UROBILINOGEN,URINE NORMAL (NORMAL)
[2019-02-23 23:12] LABS: BACTERIA,URINE NEGATIVE /HPF; SQUAMOUS EPITHELIAL CELL,UR 25-50 /HPF
[2019-02-23 23:13] LABS: AMORPHOUS SEDIMENT,UR FEW AMOR PHOSPHATE /LPF
[2019-02-24 00:01] LABS: BASOPHILS % (AUTO) 0 % (0-10); EOSINOPHILS # (AUTO) 0.1 10^3/uL (0.0-0.3); EOSINOPHILS % (AUTO) 1 % (0-10); HEMATOCRIT 36 % (35-52); HEMOGLOBIN 12.9 G/DL (11.5-16.0); LYMPHOCYTES # (AUTO) 1.1 X 10^3 (1.0-4.0); LYMPHOCYTES % (AUTO) 7 % (12-44); MEAN CORPUSCULAR HEMOGLOBIN 29 PG (25-34); MEAN CORPUSCULAR HGB CONC 36 G/DL (32-36); MEAN CORPUSCULAR VOLUME 81 FL (80-99); MEAN PLATELET VOLUME 11.1 FL (7.4-10.4); MONOCYTES # (AUTO) 0.8 X 10^3 (0.0-1.0); MONOCYTES % (AUTO) 5 % (0-12); NEUTROPHILS # (AUTO) 14.4 X 10^3 (1.8-7.8); NEUTROPHILS % (AUTO) 88 % (42-75); PLATELET COUNT 273 10^3/uL (130-400); RED CELL DISTRIBUTION WIDTH 13.7 % (10.0-14.5); WHITE BLOOD COUNT 16.4 10^3/uL (4.3-11.0)
[2019-02-24 00:13] LABS: INR 0.9 (0.8-1.4); PROTHROMBIN TIME PATIENT 12.6 SEC (12.2-14.7)
[2019-02-24 00:19] LABS: ALANINE AMINOTRANSFERASE 10 U/L (0-55); ALBUMIN 4.2 GM/DL (3.2-4.5); ALKALINE PHOSPHATASE 92 U/L (40-136); BILIRUBIN,TOTAL 0.5 MG/DL (0.1-1.0); BUN/CREATININE RATIO 14; CALCIUM 8.9 MG/DL (8.5-10.1); CARBON DIOXIDE 20 MMOL/L (21-32); CHLORIDE 83 MMOL/L (98-107); GFR ESTIMATED > 60; GLUCOSE 172 MG/DL (70-105); MAGNESIUM 1.9 MG/DL (1.6-2.4); TOTAL PROTEIN 9.7 GM/DL (6.4-8.2)
[2019-02-24 00:22] LABS: BAND NEUTROPHILS 5 %; BURR CELLS MODERATE; LYMPHOCYTES % (MANUAL) 5 %; MONOCYTES % (MANUAL) 4 %; NEUTROPHILS % (MANUAL) 86 %
[2019-02-24 00:44] LABS: POTASSIUM 4.8 MMOL/L (3.6-5.0)
[2019-02-24 00:45] LABS: SODIUM 121 MMOL/L (135-145)
[2019-02-24 00:48] LABS: TSH (THYROID ANALYZER) 5.01 UIU/ML (0.35-4.94)
[2019-02-24] MEDS ORDERED: NS IV 1000 ML 1,000 ML IV ONE (00:48)
[2019-02-24] MEDS ORDERED: ONDANSETRON 4 MG/2 ML (SDV) Z0FRAN IVP ONE (01:15)
[2019-02-24 01:22] LABS: FREE T4 (FREE THYROXINE) 1.24 NG/DL (0.70-1.48)
[2019-02-24 01:37] VITALS: BP 169/77
[2019-02-24] MEDS ORDERED: ONDANSETRON 4 MG/2 ML (SDV) Z0FRAN IV PRN (02:00)
[2019-02-24 05:11] LABS: BASOPHILS % (AUTO) 0 % (0-10); EOSINOPHILS % (AUTO) 0 % (0-10); HEMATOCRIT 34 % (35-52); HEMOGLOBIN 11.9 G/DL (11.5-16.0); LYMPHOCYTES % (AUTO) 10 % (12-44); MEAN CORPUSCULAR HEMOGLOBIN 29 PG (25-34); MEAN CORPUSCULAR HGB CONC 36 G/DL (32-36); MEAN CORPUSCULAR VOLUME 82 FL (80-99); MEAN PLATELET VOLUME 10.9 FL (7.4-10.4); MONOCYTES # (AUTO) 0.7 X 10^3 (0.0-1.0); MONOCYTES % (AUTO) 7 % (0-12); NEUTROPHILS # (AUTO) 8.7 X 10^3 (1.8-7.8); NEUTROPHILS % (AUTO) 83 % (42-75); PLATELET COUNT 304 10^3/uL (130-400); RED CELL DISTRIBUTION WIDTH 13.5 % (10.0-14.5); WHITE BLOOD COUNT 10.4 10^3/uL (4.3-11.0)
[2019-02-24 05:32] LABS: ALANINE AMINOTRANSFERASE 7 U/L (0-55); ALBUMIN 3.8 GM/DL (3.2-4.5); ALKALINE PHOSPHATASE 84 U/L (40-136); BILIRUBIN,TOTAL 0.4 MG/DL (0.1-1.0); BUN/CREATININE RATIO 15; CALCIUM 8.5 MG/DL (8.5-10.1); CARBON DIOXIDE 25 MMOL/L (21-32); CHLORIDE 86 MMOL/L (98-107); GFR ESTIMATED > 60; GLUCOSE 147 MG/DL (70-105); POTASSIUM 3.3 MMOL/L (3.6-5.0); TOTAL PROTEIN 7.1 GM/DL (6.4-8.2)
[2019-02-24 05:38] LABS: SODIUM 123 MMOL/L (135-145)
[2019-02-24] MEDS: inSUlin ASPART (NovoLOG) 1 UNIT/0.01 ML (CHARGE PER UNIT) SC SCH ×4 (06:01→21:06)
[2019-02-24] MEDS: NS IV 1000 ML 1,000 ML IV SCH ×3 (06:20→18:49)
--- NOTE | 2019-02-24 07:05 | Diagnostic Imaging Report ---
PROCEDURE: CT head and CT cervical spine without contrast. TECHNIQUE: Multiple contiguous axial images were obtained through the brain and cervical spine without the use of intravenous contrast. Sagittal and coronal reformations through the cervical spine were then performed. Auto Exposure Controls were utilized during the CT exam to meet ALARA standards for radiation dose reduction. INDICATION: Head and neck pain after fall. FINDINGS: There is prominence of ventricles and sulci. There is some chronic microvascular ischemic disease. There is no hydrocephalus. There is no midline shift. There is no intracranial mass, hemorrhage or extra-axial fluid collection. Calvarium is intact. Sinuses and mastoid air cells are clear. The alignment of the cervical spine is grossly normal. The vertebral body heights are well-maintained. There is no fracture or traumatic subluxation. The odontoid is intact and lateral masses are well aligned. There is some diffuse cervical spondylosis. Prevertebral soft tissues are within normal limits. Lung apices are clear. IMPRESSION: Atrophy and some chronic microvascular ischemic disease, however no acute intracranial abnormality. Spondylosis without acute fracture or traumatic subluxation. Dictated by: Dictated on workstation # [id number]
--- NOTE | 2019-02-24 07:16 | Diagnostic Imaging Report ---
PROCEDURE: CT thoracic and lumbar spine without contrast. TECHNIQUE: Multiple contiguous axial images were obtained through the thoracic and lumbar spine without the use of intravenous contrast. Sagittal and coronal reformations were then performed. INDICATION: Back pain after fall. FINDINGS: The bones are osteopenic. There is an unchanged mild compression fracture deformity of the T11 vertebral body. The remaining thoracic vertebral body heights are well-maintained. There is no fracture or traumatic subluxation. \there is no bony encroachment up the spinal canal. There are diffuse degenerative changes. The alignment of the lumbar spine is normal. There is marked degenerative disc disease at L2-3 with endplate sclerosis and marginal osteophytosis. There is no fracture. There is no spondylolysis or spondylolisthesis. No bony encroachment upon the spinal canal. Soft tissue structures are grossly unremarkable. IMPRESSION: Osteopenia and diffuse thoracolumbar spondylosis without acute fracture or traumatic subluxation. There is an unchanged mild compression fracture deformity of T11 vertebral body. Dictated by: Dictated on workstation # [id number]
--- NOTE | 2019-02-24 07:17 | Diagnostic Imaging Report ---
Indication: Trauma. Findings: There appears to be old posttraumatic change about the right obturator ring. There is no acute fracture. Proximal femurs are intact. There is no dislocation. There are degenerative and postsurgical changes of lower lumbar spine. Soft tissues are unremarkable. Impression: Degenerative and post traumatic change however no acute fracture or dislocation. Dictated by: Dictated on workstation # [id number]
--- NOTE | 2019-02-24 07:21 | Diagnostic Imaging Report ---
INDICATION: Fall. Comparison made with prior examination 09/13/2016. FINDINGS: There is cardiomegaly. Lungs are clear. There is no pleural effusion or pneumothorax. Some discoid atelectasis in right midlung. IMPRESSION: Cardiomegaly and some subsegmental atelectasis in the right midlung. Dictated by: Dictated on workstation # [id number]
[2019-02-24 08:18] VITALS: BP 165/71
[2019-02-24] MEDS ORDERED: HYDR453.3 TP (09:09)
[2019-02-24] MEDS ORDERED: MIRT7.5T8 PO (09:09)
[2019-02-24] MEDS ORDERED: SERT50TA9 PO (09:09)
[2019-02-24] MEDS ORDERED: MEMA28CA5 PO (09:09)
[2019-02-24] MEDS ORDERED: BENZ9.352 BC (09:09)
[2019-02-24] MEDS ORDERED: CETI10TA20 PO (09:09)
[2019-02-24] MEDS ORDERED: BENZ100C18 PO (09:09)
[2019-02-24] MEDS ORDERED: DOCU100T2 PO (09:09)
[2019-02-24] MEDS ORDERED: METF-399 PO (09:09)
[2019-02-24] MEDS ORDERED: [UNRECOGNIZED DRUG - CODE] PO (09:09)
[2019-02-24] MEDS ORDERED: METO2.5T PO (09:09)
[2019-02-24] MEDS ORDERED: ACET325T49 PO (09:09)
[2019-02-24] MEDS ORDERED: LEVO100T7 PO (09:09)
[2019-02-24] MEDS ORDERED: SENN-145 PO (09:09)
[2019-02-24] MEDS ORDERED: LIRA0.6P SC (09:09)
[2019-02-24] MEDS ORDERED: ATEN100T PO (09:09)
[2019-02-24] MEDS ORDERED: DONE10TA41 PO (09:09)
--- NOTE | 2019-02-24 09:19 | NUR ---
UPDATED MED REC WITH [facility]
--- NOTE | 2019-02-24 11:40 | History & Physical-Hospitalist ---
CARLEE LOCKE [employer] 02/24/19 1139: History of Present Illness HPI/Chief Complaint Pt had fall at senior care around 9PM on 02/23. Per senior care note, pt's son reported pt fell out of chair and hit her head; No LOC was reported. Per son, pt has not been acting like herself since the fall. Per ED note, on arrival to ED pt was weak but A&Ox5. She does not remember the fall Although pt has hx of Dementia she is able to answer some questions; she denies neck pain or back pain but does report SIMPSON from the med pump beeping. Per nurse pt has not had any BMs but has been voiding via gabriel. XR of Pelvis, thoracic and lumbar back showed no acute fractures. Head and Neck CT was negative for intracranial abnormalities or traumatic subluxation. Pt does have hx of generalized weakness and difficulty walking. Source: patient, old records Exam Limitations: no limitations, other Date Seen 02/24/19 Attending Physician Bonnie Dugan DO PCP No,Local Physician Referring Physician Date of Admission Feb 24, 2019 at 00:50 Home Medications & Allergies Home Medications Reviewed patient Home Medication Reconciliation performed by pharmacy medication reconciliations body technician/painter and/or nursing. Patients Allergies have been reviewed. Allergies Allergies Coded Allergies Iodinated Contrast Media (Verified Allergy, Intermediate, hives, 11/23/11) ibuprofen (Verified Allergy, Mild, UPSET STOMACH, 11/26/11) gabapentin (Verified Allergy, Unknown, 05/20/13) lisinopril (Verified Allergy, Unknown, 12/03/05) aspirin (Verified Adverse Reaction, Intermediate, anaphylactic, 11/23/11) Past Fatmhbn-Otjdyd-Jffftx Hx Patient Social History Marrital Status: Number of Children: 3 Employed/Student: retired Alcohol Use: Denies Use Recreational Drug Use: No Smoking Status: Former Smoker (quit years ago when she was with her child) 2nd Hand Smoke Exposure: No Recent Hopitalizations: Yes Recent Infectious Disease Expo: No Immunizations Up To Date Tetanus Booster (TDap): Less than 5yrs Date of Pneumonia Vaccine: Mar 03, 2013 Seasonal Allergies Seasonal Allergies: No Past Medical History Surgeries: Appendectomy, Cardiac, Coronary Stent, Eye Surgery, Gallbladder, Hysterectomy, Orthopedic Cardiac: Coronary Artery Disease, High Cholesterol, Hypertension (essential) Neurological: Dementia, Stroke Reproductive: No Genitourinary: UTI-Chronic Gastrointestinal: Gastroesophageal Reflux, Chronic Constipation, Ulcer Musculoskeletal: Osteoporosis, Arthritis, Chronic Back Pain, Fractures Endocrine: Diabetes, Insulin dep, Hypothyroidsim HEENT: Cataract, Dysphagia (oral phase) Psychosocial: Anxiety, Depression History of Blood Disorders: No Family History No Pertinent Family Hx Review of Systems Constitutional: No chills, No diaphoresis, No fever EENTM: No ear discharge, No hearing loss Respiratory: No cough, No dyspnea on exertion, No hemoptysis Cardiovascular: No chest pain, No edema Genitourinary: No decreased output, No discharge Musculoskeletal: No back pain, No neck pain Skin: No change in color, No change in hair/nails Psychiatric/Neurological: Denies Anxiety, Denies Depressed Other ROS moderately limited by Cognitive impairment Physical Exam Physical Exam Vital Signs Vital Signs - First Documented 02/23/19 22:13 Temp 36.8 Pulse 60 Resp 20 B/P (MAP) 237/99 (145) Pulse Ox 97 O2 Delivery Room Air Capillary Refill : Less Than 3 Seconds Height, Weight, BMI Height: 5'2.00" Weight: 160lbs. oz. 72.905970ub; 24.50 BMI Method:Estimated General Appearance: No Apparent Distress, WD/WN, Thin, Other (pt is a frail. white female, with all white hair, leaning right side of the bed with neck bent to the right at severe angle, does not make eye contact when spoken to, cooperative and pleasant, only oriented to her name, does have visual hallucinations and talks to them as well) Eyes: Bilateral Eye Normal Inspection, Bilateral Eye PERRL HEENT: PERRL/EOMI, Normal ENT Inspection Respiratory: Chest Non Tender, Lungs Clear, Normal Breath Sounds, No Accessory Muscle Use, No Respiratory Distress Cardiovascular: Regular Rate, Rhythm, No Edema, No Gallop, No JVD, No Murmur, Normal Peripheral Pulses Back: Normal Inspection Extremity: Normal Capillary Refill, Normal Inspection Neurologic/Psychiatric: Alert; No Oriented x3 (A&O x1); Motor Weakness Skin: Normal Color Lymphatic: No Adenopathy Results Results/Procedures Labs Laboratory Tests 02/23/19 23:53 02/24/19 04:28 Patient resulted labs reviewed. Assessment/Plan Admission Diagnosis Admission Status: Inpatient Order (span 2 midnights) Assessment and Plan Hyponatremia and hypochloremia Fluid restriction Continue to monitor levels and effect on cognition Hypokalemia Monitor levels Plan to replace if persistent shortened APTT Monitor pt for blood clots monitor liver function Consider DVT prophylaxis AMS Continue to monitor Essential HTN Managed on Amlodipine Cardiomegaly Hx of Alzheimers On Donepazile Chronic Constipation Mange on Miralax and Senna Hx of Hypothyroidism Manage on levothyroxine DM Anxiety and depression Dysphagia, oral phase Clinical Quality Measures DVT/VTE Risk/Contraindication: Risk Factor Score Per Nursin RFS Level Per Nursing on Admit: 4+=Very High BONNIE DUGAN DO 02/24/192032: History of Present Illness HPI/Chief Complaint Chief complaint: Altered Mental status HPI: This is a 78yo WF who resides for the past two years at [facility], who has a significant history of Dementia, who is wheelchair bound and mostly bed-ridden who presents to the ER with altered mental status. Pt was found to have a sodium level of 121 no seizure activity. Her son is at the bedside, updated him on the plan. I have placed Pt on fluid restriction of 1000 CCs per day, decreased the IV fluid of normal saline from 150 down to 70, and will advance diet to dysphasia, pureed and chopped meat as she takes at senior care. Home meds will be reviewed and will evaluate the cause of the hyponatremia. Time Seen by a Provider: 09:00 Past Cwplnke-Vothys-Acoqta Hx Past Med/Social Hx: Reviewed Nursing Past Med/Soc Hx Physical Exam Physical Exam General Appearance: No Apparent Distress, WD/WN, Chronically ill, Thin Respiratory: Lungs Clear Cardiovascular: Regular Rate, Rhythm Neurologic/Psychiatric: Alert, Disoriented Assessment/Plan Admission Diagnosis Assessment: Hyponatremia AMS Dementia Plan: Decrease IVF but maintain at NS Fluid restriction Admission Status: Inpatient Order (span 2 midnights) Reason for Inpatient Admission: Severe hyponatremia with dementia and AMS near seizure level Diagnosis/Problems Diagnosis/Problems (1) Hyponatremia Status: Acute (2) Altered mental status Status: Acute Qualifiers: Altered mental status type: unspecified Qualified Codes: R41.82 - Altered mental status, unspecified (3) Hypothyroidism Status: Chronic Qualifiers: Hypothyroidism type: acquired Qualified Codes: E03.9 - Hypothyroidism, unspecified (4) Dehydration Status: Acute (5) Uncontrolled diabetes mellitus Status: Chronic Qualifiers: Diabetes mellitus type: type 2 Glycemic state: with hyperglycemia Qualified Codes: E11.65 - Type 2 diabetes mellitus with hyperglycemia (6) Mild renal insufficiency Status: Chronic (7) Uncontrolled hypertension Status: Chronic (8) Fall on same level Status: Acute Supervisory-Addendum Brief Verification & Attestation Participated in pt care: history, MDM, physical Personally performed: exam, history, MDM, supervision of care Care discussed with: Medical Student Procedures: n/a Results interpretation: Verified all documentation Verification and Attestation of Medical Student E/M Service A medical student performed and documented this service in my presence. I reviewed and verified all information documented by the medical student and made modifications to such information, when appropriate. I personally performed the physical exam and medical decision making. Bonnie Dugan, Feb 25, 2019,08:16 CARLEE LOCKE [facility] [facility] Feb 24, 2019 11:39 BONNIE DUGAN DO Feb 24, 2019 20:33
[2019-02-24 12:06] VITALS: BP 144/69
[2019-02-24 16:43] VITALS: BP 148/71
[2019-02-24 20:05] VITALS: BP 147/65
[2019-02-25] VITALS (10 sets, daily range): BP systolic 124–194; BP diastolic 4–81
[2019-02-25] MEDS: inSUlin ASPART (NovoLOG) 1 UNIT/0.01 ML (CHARGE PER UNIT) SC SCH ×4 (05:37→21:47)
--- NOTE | 2019-02-25 06:56 | Progress Note - Hospitalist ---
CARLEE LOCKE [facility] 02/25/19 0656: Subjective HPI/CC On Admission Date Seen by Provider: Feb 25, 2019 Time Seen by Provider: 06:53 Pt had fall at [facility] around 9PM on 02/23. Per [facility] note, pt's son reported pt fell out of chair and hit her head; No LOC was reported. Per son, pt has not been acting like herself since the fall. Per ED note, on arrival to ED pt was weak but A&Ox5. She does not remember the fall Although pt has hx of Dementia she is able to answer some questions; she denies neck pain or back pain but does report SIMPSON from the med pump beeping. Per nurse pt has not had any BMs but has been voiding via gabriel. XR of Pelvis, thoracic and lumbar back showed no acute fractures. Head and Neck CT was negative for intracranial abnormalities or traumatic subluxation. Pt does have hx of generalized weakness and difficulty walking. Subjective/Events-last exam Pt continues to be hypertensive still has some confusion but seems to be improving somewhat, she continues to be confused about where she is and how she ended up here Not having BMs Voiding normally Slept alright Denies any pain anywhere At breakfast by herself Look disheveled this AM Review of Systems General: No Chills, No Fatigue Pulmonary: No Dyspnea, No Cough Gastrointestinal: Constipation; No: Nausea Musculoskeletal: No: neck pain, back pain Objective Exam Vital Signs Vital Signs Date Time Temp Pulse Resp B/P (MAP) Pulse Ox O2 Delivery O2 Flow Rate FiO2 02/25/19 08:00 37.2 66 18 170/81 (110) 94 Room Air Capillary Refill : Less Than 3 Seconds General Appearance: No Apparent Distress, Thin HEENT: PERRL/EOMI, Normal ENT Inspection Neck: Normal Inspection Respiratory: Chest Non Tender, Lungs Clear, Normal Breath Sounds, No Accessory Muscle Use, No Respiratory Distress Cardiovascular: Regular Rate, Rhythm, No Edema, No Gallop, No JVD, No Murmur, Normal Peripheral Pulses Neurologic/Psychiatric: Alert; No Oriented x3 (x1) Skin: Normal Color, Warm/Dry Results/Procedures Lab Laboratory Tests 02/25/19 09:02 Patient resulted labs reviewed. Assessment/Plan Assessment and Plan Assess & Plan/Chief Complaint Hyponatremia and hypochloremia Fluid restriction Continue to monitor levels and effect on cognition Hypokalemia Monitor levels Plan to replace if persistent shortened APTT Monitor pt for blood clots monitor liver function Consider DVT prophylaxis AMS Continue to monitor Essential HTN Managed on Amlodipine at [facility] B-odilia Cardiomegaly Hx of Alzheimers On Donepazile Chronic Constipation Mange on Miralax and Senna Hx of Hypothyroidism Manage on levothyroxine DM Anxiety and depression Dysphagia, oral phase Clinical Quality Measures DVT/VTE Risk/Contraindication: Risk Factor Score Per Nursin RFS Level Per Nursing on Admit: 4+=Very High BONNIE DUGAN DO 02/25/19 2019: Subjective Subjective/Events-last exam Sodium level up to 125 Evaluated her home medication and she was placed on Metolazone 2.5 mg daily and I had pharmacy evaluate when that was started and apparently her first dose was on 02/19/19 and had received it everyday and pt was on no other type of diuretics and thus had altered mental status and found to have sodium level of 121 when she was admitted Home medications were otherwise restarted except for that one Will get pt out of bed and initiate PT and OT Baseline confusion persists due to chronic dementia Assessment/Plan Assessment and Plan Assess & Plan/Chief Complaint Hold Metalazone Diagnosis/Problems Diagnosis/Problems (1) Hyponatremia Status: Acute (2) Fall on same level Status: Acute (3) Altered mental status Status: Acute Qualifiers: Qualified Codes: R41.82 - Altered mental status, unspecified (4) Hypothyroidism Status: Chronic Qualifiers: Qualified Codes: E03.9 - Hypothyroidism, unspecified (5) Uncontrolled diabetes mellitus Status: Chronic Qualifiers: Qualified Codes: E11.65 - Type 2 diabetes mellitus with hyperglycemia (6) Mild renal insufficiency Status: Chronic (7) Uncontrolled hypertension Status: Chronic Supervisory-Addendum Brief Verification & Attestation Participated in pt care: history, MDM, physical Personally performed: exam, history, MDM, supervision of care Care discussed with: Medical Student Procedures: n/a Results interpretation: Verified all documentation Verification and Attestation of Medical Student E/M Service A medical student performed and documented this service in my presence. I reviewed and verified all information documented by the medical student and made modifications to such information, when appropriate. I personally performed the physical exam and medical decision making. Bonnie Dugan, Feb 25, 2019,20:18 CARLEE LOCKE [facility] Feb 25, 2019 06:56 BONNIE DUGAN DO Feb 25, 2019 20:19
[2019-02-25] MEDS ORDERED: ACETAMINOPHEN 325 MG TABLET PO PRN (08:30)
[2019-02-25] MEDS ORDERED: BENZONATATE 100 MG (TESSALON) CAPSULE PO PRN (08:30)
[2019-02-25] MEDS ORDERED: PHENYLEPHRINE PO PRN (08:30)
[2019-02-25] MEDS ORDERED: SENNA W/DOCUSATE (SENOKOT S) TABLET PO PRN (08:45)
[2019-02-25] MEDS ORDERED: LORATADINE (CLARITIN) 10 MG TAB PO PRN (09:00)
[2019-02-25] MEDS ORDERED: DOCUSATE SODIUM 100 MG (COLACE) CAP PO PRN (09:00)
[2019-02-25 09:07] LABS: BASOPHILS % (AUTO) 0 % (0-10); EOSINOPHILS # (AUTO) 0.1 10^3/uL (0.0-0.3); EOSINOPHILS % (AUTO) 2 % (0-10); HEMATOCRIT 33 % (35-52); HEMOGLOBIN 11.5 G/DL (11.5-16.0); LYMPHOCYTES # (AUTO) 0.9 X 10^3 (1.0-4.0); LYMPHOCYTES % (AUTO) 15 % (12-44); MEAN CORPUSCULAR HEMOGLOBIN 29 PG (25-34); MEAN CORPUSCULAR HGB CONC 35 G/DL (32-36); MEAN CORPUSCULAR VOLUME 83 FL (80-99); MEAN PLATELET VOLUME 10.7 FL (7.4-10.4); MONOCYTES # (AUTO) 0.8 X 10^3 (0.0-1.0); MONOCYTES % (AUTO) 13 % (0-12); NEUTROPHILS # (AUTO) 4.3 X 10^3 (1.8-7.8); NEUTROPHILS % (AUTO) 70 % (42-75); PLATELET COUNT 253 10^3/uL (130-400); RED CELL DISTRIBUTION WIDTH 13.5 % (10.0-14.5); WHITE BLOOD COUNT 6.2 10^3/uL (4.3-11.0)
[2019-02-25 09:29] LABS: ALANINE AMINOTRANSFERASE 12 U/L (0-55); ALBUMIN 3.7 GM/DL (3.2-4.5); ALKALINE PHOSPHATASE 73 U/L (40-136); BILIRUBIN,TOTAL 0.9 MG/DL (0.1-1.0); BUN/CREATININE RATIO 8; CALCIUM 8.4 MG/DL (8.5-10.1); CARBON DIOXIDE 22 MMOL/L (21-32); CHLORIDE 90 MMOL/L (98-107); CREATININE SERUM 0.71 MG/DL (0.60-1.30); GFR ESTIMATED > 60; GLUCOSE 141 MG/DL (70-105); TOTAL PROTEIN 6.8 GM/DL (6.4-8.2)
[2019-02-25 09:46] LABS: SODIUM 125 MMOL/L (135-145)
[2019-02-25] MEDS: DONEPEZIL 10 MG (ARICEPT) TAB PO SCH (10:35)
[2019-02-25] MEDS: ATENOLOL 50 MG (TENORMIN) TAB PO SCH (10:36)
[2019-02-25] MEDS: metFORMIN 500 MG (GLUCOPHAGE) TAB PO SCH ×2 (10:36→17:20)
[2019-02-25] MEDS: MEMANTINE 10 MG (NAMENDA) TABLET PO SCH ×2 (10:36→22:18)
[2019-02-25] MEDS: NS IV 1000 ML 1,000 ML IV SCH (11:35)
[2019-02-25] MEDS: KCL 10 MEQ TAB (MICRO K) PO SCH ×2 (12:11→17:20)
[2019-02-25] MEDS: POTASSIUM CL 10MEQ/50ML IVPB 50 ML IV SCH ×4 (12:12→17:20)
--- NOTE | 2019-02-25 14:50 | Physical Therapy Progress Note ---
Therapy Progress Note Evaluation order received and evaluation attempted but patient refused. She states that she just doesn't want to get out of the chair or walk or get back to bed or anything like that. She just wants to sit there for now and she might work with therapy tomorrow. Will attempt eval tomorrow. RANDI LEAVITT PT Feb 25, 2019 14:50
--- NOTE | 2019-02-25 15:38 | Occupational Therapy Eval ---
OT Evaluation-General/PLF Medical Diagnosis Admission Date Feb 24, 2019 at 00:50 Medical Diagnosis: Dehydration, UTI, closed fracture of superior pubic ramus Onset Date: Feb 25, 2019 Therapy Diagnosis Therapy Diagnosis: decreased ADL and functional mobility Height/Weight Height (Feet): 5 Height (Inches): 2.00 Weight (Pounds): 160 Precautions Precautions/Isolations: Fall Prevention, Standard Precautions Weight Bear Status Weight Bearing Restriction: Weight Bearing/Tolerated Referral Physician: Dr Bonnie Schmitt Referral Reason: Activity Tolerance, Self Care, Evaluation/Treatment, Strengthening/ROM Medical History Pertinent Medical History: CAD, DM, GERD, Hypothroidism Additional Medical History PMHx: stroke, dementia, DMII Current History Per H&P:"Pt had fall at residential around 9PM on 02/23. Per residential note, pt's son reported pt fell out of chair and hit her head; No LOC was reported. Per son, pt has not been acting like herself since the fall. Per ED note, on arrival to ED pt was weak but A&Ox5. She does not remember the fall Although pt has hx of Dementia she is able to answer some questions; she denies neck pain or back pain but does report SIMPSON from the med pump beeping. Per nurse pt has not had any BMs but has been voiding via gabriel. XR of Pelvis, thoracic and lumbar back showed no acute fractures. Head and Neck CT was negative for intracranial abnormalities or traumatic subluxation. Pt does have hx of generalized weakness and difficulty walking." Reviewed History: Yes Social History Home: [facility] Entry Into Home: Level Entry Steps Into Home: 0 Steps Inside Home: 0 ADL-Prior Level of Function Therapy Code Descriptions/Definitions Functional Bee Measure: 0=Not Assessed/NA 4=Minimal Assistance 1=Total Assistance 5=Supervision or Setup 2=Maximal Assistance 6=Modified Bee 3=Moderate Assistance 7=Complete Bee Therapy Quality Codes: 6 Independent with activity with or without an assistive device 5 Patient requires set up or clean up by helper. Patient completes activity by themselves 4 Supervision or touching assist (CGA). [place] provide cues , steadying assist 3 The helper provides less than half the effort to complete the activity 2 The helper provides more than half the effort to complete the activity 1 Dependent. The helper does all the effort to complete an activity 7 Patient refused to complete or attempt activity 9 The patient did not perform the activity before the current illness or injury 88 Not attempted due to Medical conditions or safety concerns Functional Abilities and Goals: Independent: Patient completed the activities by him/herself, with or without an assistive device, with no assistance from a helper. Needed Some Help: Patient needed partial assistance from another person to complete activities. Dependent: A helper completed the activities for the patient. Unknown: Not Applicable: Self Care: Unknown (Pt states staff would assist with some showering, some dressing, some mobility tasks. Pt unable to state previous abilities.) Functional Cognition: Unknown DME/Equipment Comments Per pt: Pt ambulated with w/c, has walk in shower within residential, shower chair present. Drive Self: No Leisure Interests: Talking with son OT Current Status Subjective Pt seen in recliner chair, pt c/o L hand pain within Digits II-IV. Pt states her L hand has hurt since before hospitalization. Pt agreeable to OT eval/ treat. Mental Status/Objective Patient Orientation: Person Attachments: Gabriel Catheter, IV Current Glasses/Contacts: Yes Hearing Aids: No Dentures/Partials: No Hand Dominance: Right Upper Extremity ROM WFL Upper Extremity Coordination WFL Upper Extremity Sensation WFL, no c/o paresthesia Upper Extremity Strength DNT ADL-Treatment Therapy Code Descriptions/Definitions Functional Bee Measure: 0=Not Assessed/NA 4=Minimal Assistance 1=Total Assistance 5=Supervision or Setup 2=Maximal Assistance 6=Modified Bee 3=Moderate Assistance 7=Complete Bee Therapy Quality Codes: 6 Independent with activity with or without an assistive device 5 Patient requires set up or clean up by helper. Patient completes activity by themselves 4 Supervision or touching assist (CGA). [place] provide cues , steadying assist 3 The helper provides less than half the effort to complete the activity 2 The helper provides more than half the effort to complete the activity 1 Dependent. The helper does all the effort to complete an activity 7 Patient refused to complete or attempt activity 9 The patient did not perform the activity before the current illness or injury 88 Not attempted due to Medical conditions or safety concerns Grooming (FIM): 5 (Completed hand hygiene with wipes after s/u.) Lower Body Dressing (FIM): 1 (Dependent breif change. ) Toileting (FIM): 1 (Pt utilizes breifs, soiled upon entry. Pt states need to use bathroom. pt able to stand with max A x2, max A transfer to commode. Pt requ ired assist for clean-up. ) Transfers (B, C, W/C) (FIM): 2 (Pt able to stand with max A x2) Toilet/Commode Transfer (FIM): 2 Other Treatments Pt states she is more confused than normal, able to answer most questions with reasonable answers. Pt completes toileting routine with max A for sit to stand/ transfers and dependent toileting. Pt states weakness in BLE and need to sit during stance with BUE on FWW and being supported x1. Pt left on commode with call light in reach, all needs met. Pt educated on acute OT and call light use. Pt talking to self at end of session. assistant press operator offset notified of pt positioning at end of session with call light in reach. Education OT Patient Education: Correct positioning, Modified ADL techniques, Purpose of tx/functional activities, Rehab process, Safety issues, Transfer techniques Teaching Recipient: Patient Teaching Methods: Demonstration, Discussion Response to Teaching: Verbalize Understanding, Return Demonstration OT Short Term Goals Short Term Goals Upper Body Dressing(FIM): 4 Lower Body Dressing(FIM): 3 1=Demonstrate adherence to instructed precautions during ADL tasks. 2=Patient will verbalize/demonstrate understanding of assistive devices/modifications for ADL. 3=Patient will improve strength/tolerance for activity to enable patient to pe rform ADL's. OT Dynamics Ax Solution Architect Goals Retirement Goals Grooming(FIM): 6 Bathing(FIM): 2 Upper Body Dressing(FIM): 4 Lower Body Dressing(FIM): 3 Toileting(FIM): 3 Transfers (B,C,W/C) (FIM): 3 Toilet/Commode Transfer(FIM): 3 Tub Transfer(FIM): 3 Additional Goals: 1-Demonstrate ADL Tasks, 2-Verbalize Understanding, 3- ImproveStrength/Zay 1=Demonstrate adherence to instructed precautions during ADL tasks. 2=Patient will verbalize/demonstrate understanding of assistive devices/modifications for ADL. 3=Patient will improve strength/tolerance for activity to enable patient to perform ADL's. OT Education/Plan Problem List/Assessment Assessment: Decreased Activ Tolerance, Decreased Safety Aware, Dependent Transfers, Impaired Cognition, Impaired Funct Balance, Impaired I ADL's, Impaired Self-Care Skills Discharge Recommendations Plan/Recommendations: Continue POC Therapy Discharge Recommendati: Other, See Comments, Post Acute OT Comment halfway facility Treatment Plan/Plan of Care Treatment,Training & Education: Yes Patient would benefit from OT for education, treatment and training to promote independence in ADL's, mobility, safety and/or upper extremity function for ADL's. Plan of Care: ADL Retraining, Functional Mobility, UE Funct Exercise/Act, UE Neuromus Re-Ed/Coord Frequency: 5 times per week Estimated Hrs Per Day: .25 hour per day Agreement: Yes Rehab Potential: Guarded Time/GCodes Start Time: 02:58 Stop Time: 03:26 Total Time Billed (hr/min): 28 Billed Treatment Time 1 EVH (13), ADL (15)= 28 CHERELLE WREN OTR Feb 25, 2019 15:38
[2019-02-25] MEDS: MIRTAZAPINE 15 MG (REMERON) TAB PO SCH (22:17)
[2019-02-25] MEDS: SERTRALINE 50 MG (ZOLOFT) TABLET PO SCH (22:18)
[2019-02-26] MEDS: ENOXAPARIN 30 MG/0.3 ML (LOVENOX) SYR SC SCH ×2 (00:18→20:32)
[2019-02-26] MEDS: NS IV 1000 ML 1,000 ML IV SCH (02:26)
[2019-02-26 04:00] VITALS: BP 172/71
[2019-02-26] MEDS: inSUlin ASPART (NovoLOG) 1 UNIT/0.01 ML (CHARGE PER UNIT) SC SCH ×4 (06:27→20:47)
[2019-02-26 06:39] LABS: BASOPHILS % (AUTO) 0 % (0-10); EOSINOPHILS # (AUTO) 0.1 10^3/uL (0.0-0.3); EOSINOPHILS % (AUTO) 1 % (0-10); HEMATOCRIT 34 % (35-52); HEMOGLOBIN 11.9 G/DL (11.5-16.0); LYMPHOCYTES # (AUTO) 1.1 X 10^3 (1.0-4.0); LYMPHOCYTES % (AUTO) 15 % (12-44); MEAN CORPUSCULAR HEMOGLOBIN 29 PG (25-34); MEAN CORPUSCULAR HGB CONC 35 G/DL (32-36); MEAN CORPUSCULAR VOLUME 83 FL (80-99); MEAN PLATELET VOLUME 11.6 FL (7.4-10.4); MONOCYTES # (AUTO) 0.6 X 10^3 (0.0-1.0); MONOCYTES % (AUTO) 9 % (0-12); NEUTROPHILS # (AUTO) 5.3 X 10^3 (1.8-7.8); NEUTROPHILS % (AUTO) 75 % (42-75); PLATELET COUNT 284 10^3/uL (130-400); RED CELL DISTRIBUTION WIDTH 13.9 % (10.0-14.5)
[2019-02-26] MEDS: LEVOTHYROXINE 100 MCG (LEVOTHROID) TAB PO SCH (06:47)
[2019-02-26] MEDS: KCL 10 MEQ TAB (MICRO K) PO SCH ×2 (06:47→17:41)
[2019-02-26 07:07] LABS: ALANINE AMINOTRANSFERASE 9 U/L (0-55); ALBUMIN 3.5 GM/DL (3.2-4.5); ALKALINE PHOSPHATASE 78 U/L (40-136); BILIRUBIN,TOTAL 0.6 MG/DL (0.1-1.0); BUN/CREATININE RATIO 11; CALCIUM 8.4 MG/DL (8.5-10.1); CARBON DIOXIDE 24 MMOL/L (21-32); CHLORIDE 96 MMOL/L (98-107); CREATININE SERUM 0.71 MG/DL (0.60-1.30); GFR ESTIMATED > 60; GLUCOSE 139 MG/DL (70-105); POTASSIUM 3.4 MMOL/L (3.6-5.0); SODIUM 130 MMOL/L (135-145); TOTAL PROTEIN 6.8 GM/DL (6.4-8.2)
--- NOTE | 2019-02-26 07:49 | Progress Note - Hospitalist ---
CARLEE LOCKE [facility] 02/26/19 0749: Subjective HPI/CC On Admission Date Seen by Provider: Feb 26, 2019 Time Seen by Provider: 07:44 Chief complaint: Altered Mental status HPI: This is a 78yo WF who resides for the past two years at [facility], who has a significant history of Dementia, who is wheelchair bound and mostly bed-ridden who presents to the ER with altered mental status. Pt was found to have a sodium level of 121 no seizure activity. Her son is at the bedside, updated him on the plan. I have placed Pt on fluid restriction of 1000 CCs per day, decreased the IV fluid of normal saline from 150 down to 70, and will advance diet to dysphasia, pureed and chopped meat as she takes at detention. Home meds will be reviewed and will evaluate the cause of the hyponatremia. Subjective/Events-last exam Continuously hypertensive Pt resisted PT yesterday, Will try again today Hyponatremia improved after Metolazone d/c Hypokalemia Plan for d/c tomorrow Review of Systems HEENT: No Head Aches Pulmonary: No Dyspnea Cardiovascular: No: Chest Pain, Palpitations Gastrointestinal: No: Nausea, Vomiting Objective Exam Vital Signs Vital Signs Date Time Temp Pulse Resp B/P (MAP) Pulse Ox O2 Delivery O2 Flow Rate FiO2 02/26/19 08:00 36.6 73 18 152/85 (107) 100 Room Air Capillary Refill : Less Than 3 Seconds General Appearance: No Apparent Distress, WD/WN HEENT: PERRL/EOMI, Normal ENT Inspection Neck: Normal Inspection Respiratory: Chest Non Tender, Lungs Clear, Normal Breath Sounds, No Accessory Muscle Use, No Respiratory Distress Cardiovascular: Regular Rate, Rhythm, No Edema, No Gallop, No JVD, No Murmur, Normal Peripheral Pulses Extremity: Normal Capillary Refill, Normal Inspection Neurologic/Psychiatric: Alert; No Oriented x3 Skin: Normal Color, Warm/Dry Results/Procedures Lab Laboratory Tests 02/26/19 05:39 Patient resulted labs reviewed. Assessment/Plan Assessment and Plan Assess & Plan/Chief Complaint Hyponatremia and hypochloremia Fluid restriction Improved Hypokalemia Monitor levels Plan to replace AMS Continue to monitor Essential HTN Continuously elevated Restarted back on Amlodipine Cardiomegaly Hx of Alzheimers On Donepazile Chronic Constipation Mange on Miralax and Senna Hx of Hypothyroidism Manage on levothyroxine DM Anxiety and depression Dysphagia, oral phase Plan for D/C tomorrow Clinical Quality Measures DVT/VTE Risk/Contraindication: Risk Factor Score Per Nursin RFS Level Per Nursing on Admit: 4+=Very High BONNIE DUGAN DO 02/26/19 1806: Subjective Subjective/Events-last exam Pt up in a chair waiting for breakfast. Family at the bedside. Elevated BP will prompt Norvasc 5 Mg addition. Will discontinue gabriel catheter. PT and OT was refused yesterday. Will heplock IV fluid. Bowel treatment will be intensified to get bowel moving. Discharge is planned back to [facility] [place]. Assessment/Plan Assessment and Plan Assess & Plan/Chief Complaint DC tomorrow Diagnosis/Problems Diagnosis/Problems (1) Altered mental status Status: Acute Qualifiers: Qualified Codes: R41.82 - Altered mental status, unspecified (2) Dehydration Status: Acute (3) Hyponatremia Status: Acute Supervisory-Addendum Brief Verification & Attestation Participated in pt care: history, MDM, physical Personally performed: exam, history, MDM, supervision of care Care discussed with: Medical Student Procedures: n/a Results interpretation: Verified all documentation Verification and Attestation of Medical Student E/M Service A medical student performed and documented this service in my presence. I reviewed and verified all information documented by the medical student and made modifications to such information, when appropriate. I personally performed the physical exam and medical decision making. Bonnie Dugan, Feb 26, 2019,18:06 CARLEE LOCKE [facility] Feb 26, 2019 07:49 BONNIE DUGAN DO Feb 26, 2019 18:06
[2019-02-26 08:00] VITALS: BP 152/85
--- NOTE | 2019-02-26 09:55 | Physical Therapy Evaluation ---
PT Evaluation-General Medical Diagnosis Admission Date Feb 24, 2019 at 00:50 Medical Diagnosis: Dehydration, UTI, closed fracture of superior pubic ramus Onset Date: Feb 25, 2019 Therapy Diagnosis Therapy Diagnosis: debility/weakness Height/Weight Height (Feet): 5 Height (Inches): 2.00 Weight (Pounds): 160 Precautions Precautions/Isolations: Fall Prevention, Standard Precautions Referral Physician: Dr Bonnie Schmitt Reason for Referral: Evaluation/Treatment Medical History Pertinent Medical History: CAD, DM, Dementia, GERD, HTN, Hypothroidism Current History fall at [facility] Reviewed History: Yes Social History Home: [facility] Entry Into Home: Level Entry PT Steps Into Home: 0 PT Steps Inside Home: 0 Prior/Core FIM Prior Level of Function Therapy Code Descriptions/Definitions Functional Collin Measure: 0=Not Assessed/NA 4=Minimal Assistance 1=Total Assistance 5=Supervision or Setup 2=Maximal Assistance 6=Modified Collin 3=Moderate Assistance 7=Complete Collin Therapy Quality Codes: 6 Independent with activity with or without an assistive device 5 Patient requires set up or clean up by helper. Patient completes activity by themselves 4 Supervision or touching assist (CGA). [place] provide cues , steadying assist 3 The helper provides less than half the effort to complete the activity 2 The helper provides more than half the effort to complete the activity 1 Dependent. The helper does all the effort to complete an activity 7 Patient refused to complete or attempt activity 9 The patient did not perform the activity before the current illness or injury 88 Not attempted due to Medical conditions or safety concerns Functional Abilities and Goals: Independent: Patient completed the activities by him/herself, with or without an assistive device, with no assistance from a helper. Needed Some Help: Patient needed partial assistance from another person to complete activities. Dependent: A helper completed the activities for the patient. Unknown: Not Applicable: Bed Mobility: 2 Transfers (B,C,W/C) (FIM): 2 Gait: 1 Indoor Mobility (Ambulation): Not Applicalbe Stairs: Needed Some Help Prior Devices Use: Manual wheelchair per family, patient is nonambulatory PLOF and is in w/c at [facility] PT Evaluation-Current Subjective Patient and family agree to PT. Objective Patient Orientation: Confused Problem Solving: Poor Attachments: Joyner Catheter, IV ROM/Strength ROM Lower Extremities bilateral LE WFL Strength Lower Extremities 3-/5 grossly bilateral LE Integumentary/Posture Integumentary refer to nursing notes Bladder Incontinence: Joyner Cath Posture slightly kyphotic Neuromuscular (Tone, Coordination, Reflexes) diminished coordination Sensory Vision: Functional Hearing: Functional Hand Dominance: Right Sensation Right Lower Extremit: Impaired Sensation Left Lower Extremity: Impaired Transfers Therapy Code Descriptions/Definitions Functional Collin Measure: 0=Not Assessed/NA 4=Minimal Assistance 1=Total Assistance 5=Supervision or Setup 2=Maximal Assistance 6=Modified Collin 3=Moderate Assistance 7=Complete Collin Transfers (B, C, W/C) (FIM): 2 Scootin Rollin Supine to/from Sit: 2 Sit to/from Stand: 2 bed t/f WC(FIM only if WC use): 2 Gait Mode of Locomotion: Wheelchair Anticipated Mode of Locomotion: Wheelchair Gait (FIM): 1 Distance (FIM): 1=up to 49 ft Distance: 5' Gait Level of Assist: 2 Gait Persons Needed: 1 Gait Assistive Device: FWW Comments/Gait Description unsteady with noted diminished motor planning with FWW use Balance Sitting Static: Fair Sitting Dynamic: Fair Standing Static: Poor Standing Dynamic: Poor Assessment/Needs 78 y.o. female, will be seen short term by skilled PT to address functional strength and mobility to improve current LOF to safely return to NH at maximum LOF. Rehab Potential: Fair PT Dater Assembler Goals Dater Assembler Goals PT Dater Assembler Goals Time Frame: Mar 07, 2019 Transfers (B,C,W/C) (FIM): 3 Gait (FIM): 1 Gait distance (FIM): 1=up to 49 ft Distance: 10' Gait Level of Assist: 3 Gait Assistive Device: FWW PT Plan Problem List Problem List: Activity Tolerance, Functional Strength, Safety, Balance, Gait, Transfer, Bed Mobility Treatment/Plan Treatment Plan: Continue Plan of Care Treatment Plan: Bed Mobility, Education, Functional Activity Zay, Functional Strength, Gait, Safety, Therapeutic Exercise, Transfers Treatment Duration: Mar 07, 2019 Frequency: 6 times per week Estimated Hrs Per Day: .25 hour per day Patient and/or Family Agrees t: Yes Discharge Recommendations Therapy Discharge Recommendati: Other, See Comments (usp/NH) Time/GCodes Time In: 800 Time Out: 823 Total Billed Treatment Time: 23 Total Billed Treatment 1 visit EVModC 23 min JENNIFER AUGUSTE PT Feb 26, 2019 09:55
--- NOTE | 2019-02-26 10:11 | Occupational Ther Daily Note ---
OT Current Status-Daily Note Subjective Pt alert, sitting in w/c. Family present in room. Pt pleasant and disoriented. Mental Status/Objective Patient Orientation: Person Therapy Code Descriptions/Definitions Functional [place] Measure: 0=Not Assessed/NA 4=Minimal Assistance 1=Total Assistance 5=Supervision or Setup 2=Maximal Assistance 6=Modified [place] 3=Moderate Assistance 7=Complete [place] Attachments: Joyner Catheter, IV ADL-Treatment Pt able to take out/put in dentures and wash face with only verbal cues. Pt only able to reach to top of forehead at this time, did not try to raise arms higher than that. Pt was handed toothbrush and toothpaste though unable to initiate how to use. Hand over hand needed to initiate movement and position of utensils. Assist to cleanse dentures. Pt then given comb and was able to initiate combing hair then stopped and assist given to finish task. After therapy, pt sitting in w/c with family present waiting on breakfast. Call light/phone in reach. All needs met in room. Grooming (FIM): 2 OT Short Term Goals Short Term Goals Upper Body Dressing(FIM): 4 Lower Body Dressing(FIM): 3 1=Demonstrate adherence to instructed precautions during ADL tasks. 2=Patient will verbalize/demonstrate understanding of assistive devices/modifications for ADL. 3=Patient will improve strength/tolerance for activity to enable patient to perform ADL's. OT Assisted Goals Assisted Goals Grooming(FIM): 6 Bathing(FIM): 2 Upper Body Dressing(FIM): 4 Lower Body Dressing(FIM): 3 Toileting(FIM): 3 Transfers (B,C,W/C) (FIM): 3 Toilet/Commode Transfer(FIM): 3 Tub Transfer(FIM): 3 Additional Goals: 1-Demonstrate ADL Tasks, 2-Verbalize Understanding, 3- ImproveStrength/Zay 1=Demonstrate adherence to instructed precautions during ADL tasks. 2=Patient will verbalize/demonstrate understanding of assistive devices/modifications for ADL. 3=Patient will improve strength/tolerance for activity to enable patient to perform ADL's. OT Education/Plan Problem List/Assessment Assessment: Decreased Activ Tolerance, Decreased Safety Aware, Decreased UE Strength, Impaired Cognition, Impaired Self-Care Skills, Restricted Funct UE ROM Discharge Recommendations Plan/Recommendations: Continue POC Treatment Plan/Plan of Care Patient would benefit from OT for education, treatment and training to promote independence in ADL's, mobility, safety and/or upper extremity function for ADL's. Plan of Care: ADL Retraining, Functional Mobility, UE Funct Exercise/Act, UE Neuromus Re-Ed/Coord Frequency: 5 times per week Estimated Hrs Per Day: .25 hour per day Agreement: Yes Rehab Potential: Fair Time/GCodes Start Time: 09:25 Stop Time: 09:45 Total Time Billed (hr/min): 20 Billed Treatment Time 1 visit-ADL 1 (20 min) GERMAN DAVIS Feb 26, 2019 10:11
[2019-02-26] MEDS ORDERED: metFORMIN 500 MG (GLUCOPHAGE) TAB ONE (10:16)
[2019-02-26] MEDS: MEMANTINE 10 MG (NAMENDA) TABLET PO SCH ×2 (10:24→20:32)
[2019-02-26] MEDS: ATENOLOL 50 MG (TENORMIN) TAB PO SCH (10:24)
[2019-02-26] MEDS: DONEPEZIL 10 MG (ARICEPT) TAB PO SCH (10:26)
[2019-02-26] MEDS: metFORMIN 500 MG (GLUCOPHAGE) TAB PO SCH ×2 (10:28→17:41)
[2019-02-26] MEDS ORDERED: amLODIPine 5 MG (NORVASC) TAB PO NR (11:15)
[2019-02-26] MEDS ORDERED: BISACODYL 10 MG SUPP (DULCOLAX) PR PRN (12:15)
[2019-02-26 12:28] VITALS: BP 138/65
--- NOTE | 2019-02-26 15:25 | NUR ---
LARGE BROWN LOOSE STOOL FROM SUPP
[2019-02-26 16:00] VITALS: BP 162/72
[2019-02-26] MEDS ORDERED: metFORMIN 500 MG (GLUCOPHAGE) TAB PO SCH (17:00)
[2019-02-26 20:00] VITALS: BP 177/77
[2019-02-26 20:20] VITALS: BP 139/82
[2019-02-26] MEDS: MIRTAZAPINE 15 MG (REMERON) TAB PO SCH (20:32)
[2019-02-26] MEDS: SERTRALINE 50 MG (ZOLOFT) TABLET PO SCH (20:32)
[2019-02-27 00:10] VITALS: BP 158/70
[2019-02-27 04:00] VITALS: BP 133/65
[2019-02-27 05:33] VITALS: BP 133/65
[2019-02-27] MEDS: inSUlin ASPART (NovoLOG) 1 UNIT/0.01 ML (CHARGE PER UNIT) SC SCH ×2 (05:57→11:03)
[2019-02-27 06:48] LABS: BASOPHILS % (AUTO) 1 % (0-10); EOSINOPHILS # (AUTO) 0.4 10^3/uL (0.0-0.3); EOSINOPHILS % (AUTO) 6 % (0-10); HEMATOCRIT 32 % (35-52); HEMOGLOBIN 11.1 G/DL (11.5-16.0); LYMPHOCYTES # (AUTO) 1.3 X 10^3 (1.0-4.0); LYMPHOCYTES % (AUTO) 23 % (12-44); MEAN CORPUSCULAR HEMOGLOBIN 29 PG (25-34); MEAN CORPUSCULAR HGB CONC 35 G/DL (32-36); MEAN CORPUSCULAR VOLUME 85 FL (80-99); MEAN PLATELET VOLUME 11.7 FL (7.4-10.4); MONOCYTES # (AUTO) 0.7 X 10^3 (0.0-1.0); MONOCYTES % (AUTO) 12 % (0-12); NEUTROPHILS # (AUTO) 3.1 X 10^3 (1.8-7.8); NEUTROPHILS % (AUTO) 57 % (42-75); PLATELET COUNT 273 10^3/uL (130-400); RED CELL DISTRIBUTION WIDTH 13.9 % (10.0-14.5); WHITE BLOOD COUNT 5.5 10^3/uL (4.3-11.0)
[2019-02-27] MEDS: metFORMIN 500 MG (GLUCOPHAGE) TAB PO SCH (06:52)
[2019-02-27] MEDS: LEVOTHYROXINE 100 MCG (LEVOTHROID) TAB PO SCH (06:52)
[2019-02-27] MEDS: KCL 10 MEQ TAB (MICRO K) PO SCH (06:52)
[2019-02-27 07:05] LABS: ALANINE AMINOTRANSFERASE 11 U/L (0-55); ALBUMIN 3.4 GM/DL (3.2-4.5); ALKALINE PHOSPHATASE 67 U/L (40-136); BILIRUBIN,TOTAL 0.5 MG/DL (0.1-1.0); BUN/CREATININE RATIO 13; CALCIUM 8.3 MG/DL (8.5-10.1); CARBON DIOXIDE 24 MMOL/L (21-32); CHLORIDE 98 MMOL/L (98-107); CREATININE SERUM 0.71 MG/DL (0.60-1.30); GFR ESTIMATED > 60; GLUCOSE 138 MG/DL (70-105); POTASSIUM 3.7 MMOL/L (3.6-5.0); SODIUM 131 MMOL/L (135-145); TOTAL PROTEIN 6.2 GM/DL (6.4-8.2)
[2019-02-27 07:50] VITALS: BP 161/70
[2019-02-27] MEDS ORDERED: amLODIPine 5 MG (NORVASC) TAB PO SCH (09:00)
[2019-02-27] MEDS: MEMANTINE 10 MG (NAMENDA) TABLET PO SCH (09:25)
[2019-02-27] MEDS: ATENOLOL 50 MG (TENORMIN) TAB PO SCH (09:25)
[2019-02-27] MEDS: DONEPEZIL 10 MG (ARICEPT) TAB PO SCH (09:25)
[2019-02-27] MEDS ORDERED: POTA10TA6 PO (09:43)
[2019-02-27] MEDS ORDERED: AMLO5TAB9 PO (09:43)
--- NOTE | 2019-02-27 10:41 | Occupational Ther Daily Note ---
OT Current Status-Daily Note Subjective Pt alert, sitting in w/c. Nrsg stated that pt was returning to [facility] today. Pt pleasant and disoriented. Mental Status/Objective Patient Orientation: Person Therapy Code Descriptions/Definitions Functional Cloud Measure: 0=Not Assessed/NA 4=Minimal Assistance 1=Total Assistance 5=Supervision or Setup 2=Maximal Assistance 6=Modified Cloud 3=Moderate Assistance 7=Complete Cloud Attachments: IV ADL-Treatment Pt was able to hold washcloth to wash face then asked for POWELL to finish bathing. Decreased UE ROM. Nrsg had just gotten pt up to w/c prior to OT session, nrsg cleansed pt's buttocks and slime area. After therapy, pt sitting in w/c with safety measures in place. Call light in reach. All needs met. OT Short Term Goals Short Term Goals Upper Body Dressing(FIM): 4 Lower Body Dressing(FIM): 3 1=Demonstrate adherence to instructed precautions during ADL tasks. 2=Patient will verbalize/demonstrate understanding of assistive devices/modifications for ADL. 3=Patient will improve strength/tolerance for activity to enable patient to perform ADL's. OT Strategic Account Manager Goals Penitentiary Goals Grooming(FIM): 6 Bathing(FIM): 2 Upper Body Dressing(FIM): 4 Lower Body Dressing(FIM): 3 Toileting(FIM): 3 Transfers (B,C,W/C) (FIM): 3 Toilet/Commode Transfer(FIM): 3 Tub Transfer(FIM): 3 Additional Goals: 1-Demonstrate ADL Tasks, 2-Verbalize Understanding, 3- ImproveStrength/Zay 1=Demonstrate adherence to instructed precautions during ADL tasks. 2=Patient will verbalize/demonstrate understanding of assistive devices/modifications for ADL. 3=Patient will improve strength/tolerance for activity to enable patient to perform ADL's. OT Education/Plan Discharge Recommendations Plan/Recommendations: Discharge/Goals Met (pt discharging to NH) Therapy Discharge Recommendati: 24 Hour Supervision Treatment Plan/Plan of Care Patient would benefit from OT for education, treatment and training to promote independence in ADL's, mobility, safety and/or upper extremity function for ADL's. Plan of Care: ADL Retraining, Functional Mobility, UE Funct Exercise/Act, UE Neuromus Re-Ed/Coord Frequency: 5 times per week Estimated Hrs Per Day: .25 hour per day Agreement: Yes Rehab Potential: Fair Time/GCodes Start Time: 10:15 Stop Time: 10:30 Total Time Billed (hr/min): 15 Billed Treatment Time 1 visit-ADL 1 (15 min) GERMAN DAVIS Feb 27, 2019 10:41
--- NOTE | 2019-02-27 11:30 | Discharge Summary ---
Discharge Summary Reconcile Patient Problems Problems Reviewed?: Yes Hospital Course Hospital Course Date of Admission: Feb 24, 2019 at 00:50 Admission Diagnosis : Family Physician/Provider: No,Local Physician Date of Discharge: 02/27/19 Discharge Diagnosis: AMS, Hyponatremia, Dementia Labs and Pending Lab Test: Laboratory Tests 02/26/19 16:59: Glucometer 125H 02/26/19 20:07: Glucometer 191H 02/27/19 05:14: Glucometer 151H 02/27/19 05:32: White Blood Count 5.5, Red Blood Count 3.79L, Hemoglobin 11.1L, Hematocrit 32L, Mean Corpuscular Volume 85, Mean Corpuscular Hemoglobin 29, Mean Corpuscular Hemoglobin Concent 35, Red Cell Distribution Width 13.9, Platelet Count 273, Mean Platelet Volume 11.7H, Neutrophils (%) (Auto) 57, Lymphocytes (%) (Auto) 23, Monocytes (%) (Auto) 12, Eosinophils (%) (Auto) 6, Basophils (%) (Auto) 1, Neutrophils # (Auto) 3.1, Lymphocytes # (Auto) 1.3, Monocytes # (Auto) 0.7, Eosinophils # (Auto) 0.4H, Basophils # (Auto) 0.0, Sodium Level 131L, Potassium Level 3.7, Chloride Level 98, Carbon Dioxide Level 24, Anion Gap 9, Blood Urea Nitrogen 9, Creatinine 0.71, Estimat Glomerular Filtration Rate > 60, BUN/Creatinine Ratio 13, Glucose Level 138H, Calcium Level 8.3L, Corrected Calcium 8.8, Total Bilirubin 0.5, Aspartate Amino Transf (AST/SGOT) 12, Alanine Aminotransferase (ALT/SGPT) 11, Alkaline Phosphatase 67, Total Protein 6.2L, Albumin 3.4 02/27/19 10:57: Glucometer 250H Home Meds Active Klor-Con 10 (Potassium Chloride) 10 Meq Tablet.er 10 Meq PO BID WITH MEALS 7 Days Amlodipine Besylate 5 Mg Tablet 5 Mg PO DAILY 30 Days Reported Tessalon Perles (Benzonatate) 100 Mg Capsule 100 Mg PO Q8H PRN Zyrtec (Cetirizine HCl) 10 Mg Tablet 10 Mg PO DAILY PRN Sinus PE Decongestant (Phenylephrine HCl) 10 Mg Tablet 10 Mg PO Q6H PRN Sertraline HCl 50 Mg Tablet 50 Mg PO HS Mirtazapine 7.5 Mg Tablet 7.5 Mg PO HS Metformin HCl 1,000 Mg Tablet 1,000 Mg PO BID Memantine HCl ER (Memantine HCl) 28 Mg Cap.spr.24 28 Mg PO DAILY Victoza 2-Wong (Liraglutide) 0.6 Mg/0.1 Ml Pen.injctr 1.2 Mg SC DAILY Levothyroxine Sodium 100 Mcg Tablet 100 Mcg PO DAILY Hydrocortisone 453.6 Gm Cream..g. TP Q4H PRN APPLY TO RASH, BACK, LEGS ET ARMS Donepezil HCl 10 Mg Tablet 10 Mg PO DAILY Oral Pain Relief (Benzocaine) 9.35 Gm Gel..gram. BC Q1H PRN Atenolol 100 Mg Tablet 100 Mg PO DAILY CONTACT PHYSICIAN IF SBP<100 OR PULSE <45 Senna S Tablet (Sennosides/Docusate Sodium) 1 Each Tablet 1 Tab PO Q12H PRN Docusate Sodium 100 Mg Tablet 100 Mg PO Q12H PRN Acetaminophen 325 Mg Tablet 650 Mg PO Q4H PRN Follow Up Appt.: [facility] 1 week Skilled [place] [facility] [place]) I certify that SNF services are required to be given on an inpatient basis because of the above named patient's need for shelter care on a continuing basis for the conditions(s) for which he/she was receiving inpatient hospital services prior to his/her transfer to the SNF. Senior Living Facility Order: Nursing Services, Sound Editor-Evaluate & Treat, Physical Therapy-Evaluate & Treat Oxygen Delivery Method: Room Air Discharge Diet: Other Diet (fluid restriction at 1500cc/day) Daily Activity as Tolerated: Yes Resuscitation Status: Do Not Resuscitate Bonnie Schmitt Feb 27, 2019 11:29 Pneu Vac Indicated: Yes Discharge Physical Exam General: Alert, Oriented X3, Cooperative Lungs: Clear to Auscultation BONNIE SCHMITT DO Feb 27, 2019 11:30
--- NOTE | 2019-02-27 11:45 | NUR ---
PHYLICIA/KAUR faxed over finalized discharge orders to [facility]. PHYLICIA/KAUR spoke with Ni and planned a tile picker time for 12 or 1215 on 02-27-19. Will notify patients nurse about tile picker time. Addendum: 02/27/19 at 1151 by KARLA GARCIA reviewed / approved
--- NOTE | 2019-02-27 12:19 | NUR ---
PATIENT SENT TO [facility] WITH PERSONNEL FORM THERE. REPORT CALLED TO SEVEN SANCHEZ
[2019-02-27 12:20] VITALS: BP 161/70
--- NOTE | 2019-02-27 12:35 | Discharge Summary ---
[facility] 02/27/19 1226: Discharge Summary Hospital Course Problems/Dx: (1) Altered mental status Status: Acute Qualifiers: Qualified Codes: R41.82 - Altered mental status, unspecified (2) Dehydration Status: Acute (3) Hyponatremia Status: Acute Hospital Course Date of Admission: Feb 24, 2019 at 00:50 Admission Diagnosis : Family Physician/Provider: MarielaLocal Physician Date of Discharge: 02/27/19 Discharge Diagnosis: [ ] Hospital Course: [ Pt is a 78 demented white female who presented to ED from assisted after she fell out of her and hit her head. All imaging studies including CXR, Pelvic XR, H/N CT, and Spine CT were negative for acute bleeding or other abnormalities. Pt was also reported to have AMS while at assisted. Pt was admitted to [facility] and stabilized. Severe hyponatremia was noted on her labs. Pt was put on fluid restriction and during our thorough investigation of the cause of her hyponatremia, we found that pt was recently started on Metolazone at the assisted. Metolazone was discontinued and eventually her sodium levels normalized. Her AMS resolved and pt was nursed backed to her baseline cognitive level. Pt is discharged back to assisted with her home meds, except for Metolazone. ] Labs and Pending Lab Test: Laboratory Tests 02/26/19 16:59: Glucometer 125H 02/26/19 20:07: Glucometer 191H 02/27/19 05:14: Glucometer 151H 02/27/19 05:32: White Blood Count 5.5, Red Blood Count 3.79L, Hemoglobin 11.1L, Hematocrit 32L, Mean Corpuscular Volume 85, Mean Corpuscular Hemoglobin 29, Mean Corpuscular Hemoglobin Concent 35, Red Cell Distribution Width 13.9, Platelet Count 273, Mean Platelet Volume 11.7H, Neutrophils (%) (Auto) 57, Lymphocytes (%) (Auto) 23, Monocytes (%) (Auto) 12, Eosinophils (%) (Auto) 6, Basophils (%) (Auto) 1, Neutrophils # (Auto) 3.1, Lymphocytes # (Auto) 1.3, Monocytes # (Auto) 0.7, Eosinophils # (Auto) 0.4H, Basophils # (Auto) 0.0, Sodium Level 131L, Potassium Level 3.7, Chloride Level 98, Carbon Dioxide Level 24, Anion Gap 9, Blood Urea Nitrogen 9, Creatinine 0.71, Estimat Glomerular Filtration Rate > 60, BUN/Creatinine Ratio 13, Glucose Level 138H, Calcium Level 8.3L, Corrected Calcium 8.8, Total Bilirubin 0.5, Aspartate Amino Transf (AST/SGOT) 12, Alanine Aminotransferase (ALT/SGPT) 11, Alkaline Phosphatase 67, Total Protein 6.2L, Albumin 3.4 02/27/19 10:57: Glucometer 250H Home Meds Active Klor-Con 10 (Potassium Chloride) 10 Meq Tablet.er 10 Meq PO BID WITH MEALS 7 Days Amlodipine Besylate 5 Mg Tablet 5 Mg PO DAILY 30 Days Reported Tessalon Perles (Benzonatate) 100 Mg Capsule 100 Mg PO Q8H PRN Zyrtec (Cetirizine HCl) 10 Mg Tablet 10 Mg PO DAILY PRN Sinus PE Decongestant (Phenylephrine HCl) 10 Mg Tablet 10 Mg PO Q6H PRN Sertraline HCl 50 Mg Tablet 50 Mg PO HS Mirtazapine 7.5 Mg Tablet 7.5 Mg PO HS Metformin HCl 1,000 Mg Tablet 1,000 Mg PO BID Memantine HCl ER (Memantine HCl) 28 Mg Cap.spr.24 28 Mg PO DAILY Victoza 2-Wong (Liraglutide) 0.6 Mg/0.1 Ml Pen.injctr 1.2 Mg SC DAILY Levothyroxine Sodium 100 Mcg Tablet 100 Mcg PO DAILY Hydrocortisone 453.6 Gm Cream..g. TP Q4H PRN APPLY TO RASH, BACK, LEGS ET ARMS Donepezil HCl 10 Mg Tablet 10 Mg PO DAILY Oral Pain Relief (Benzocaine) 9.35 Gm Gel..gram. BC Q1H PRN Atenolol 100 Mg Tablet 100 Mg PO DAILY CONTACT PHYSICIAN IF SBP<100 OR PULSE <45 Senna S Tablet (Sennosides/Docusate Sodium) 1 Each Tablet 1 Tab PO Q12H PRN Docusate Sodium 100 Mg Tablet 100 Mg PO Q12H PRN Acetaminophen 325 Mg Tablet 650 Mg PO Q4H PRN Discharge Instructions Discharge Diet: Other Diet (fluid restriction at 1500cc/day) Pneumonia Vaccine Order Indica: Yes Discharge Physical Examination Vital Signs Vital Signs Date Time Temp Pulse Resp B/P (MAP) Pulse Ox O2 Delivery O2 Flow Rate FiO2 02/27/19 08:00 100 Room Air 02/27/19 07:50 36.7 57 17 161/70 (100) Allergies: Coded Allergies: Iodinated Contrast Media (Verified Allergy, Intermediate, hives, 11/23/11) ibuprofen (Verified Allergy, Mild, UPSET STOMACH, 11/26/11) gabapentin (Verified Allergy, Unknown, 05/20/13) lisinopril (Verified Allergy, Unknown, 12/03/05) aspirin (Verified Adverse Reaction, Intermediate, anaphylactic, 11/23/11) Discharge Summary Date of Admission Feb 24, 2019 at 00:50 Date of Discharge Discharge Date: Feb 27, 2019 Admission Diagnosis Assessment: Hyponatremia AMS Dementia Plan: Decrease IVF but maintain at NS Fluid restriction Discharge Diagnosis Hyponatremia and hypochloremia Fluid restriction Improved Hypokalemia Monitor levels Plan to replace AMS Continue to monitor Essential HTN Continuously elevated Restarted back on Amlodipine Cardiomegaly Hx of Alzheimers On Donepazile Chronic Constipation Mange on Miralax and Senna Hx of Hypothyroidism Manage on levothyroxine DM Anxiety and depression Dysphagia, oral phase Plan for D/C tomorrow (1) Altered mental status Status: Acute Qualifiers: Qualified Codes: R41.82 - Altered mental status, unspecified (2) Dehydration Status: Acute (3) Hyponatremia Status: Acute Clinical Quality Measures DVT/VTE Risk/Contraindication: Risk Factor Score Per Nursin RFS Level Per Nursing on Admit: 4+=Very High BONNIE DUGAN DO 02/27/19 2220: Discharge Summary Hospital Course Was the Problem List Reviewed?: Yes Problems/Dx: (1) Hyponatremia Status: Acute (2) Altered mental status Status: Acute Qualifiers: Qualified Codes: R41.82 - Altered mental status, unspecified (3) Hypothyroidism Status: Chronic Qualifiers: Qualified Codes: E03.9 - Hypothyroidism, unspecified (4) Dehydration Status: Acute (5) Uncontrolled diabetes mellitus Status: Chronic Qualifiers: Qualified Codes: E11.65 - Type 2 diabetes mellitus with hyperglycemia Hospital Course Hospital Course: Pt had an uneventful hospital course when she was admitted for four days when she was admitted for severe hyponatremia of 121 with altered mental status. Pt was provided supportive care with normal saline, IV fluids, and fluid restriction, and all home meds were restarted except for the Metolazone that was just started three days prior to admission, likely the source of the hyponatremia. She was deemed stable, bowels returned back to normal after laxatives. Pt was eating and drinking and doing well and will be DC to [facility] on skilled. Assessment/Pt Instructions PCP 1 week Discharge Planning: <30 minutes discharge planning Discharge Instructions Discharge Diet: No Restrictions Discharge Physical Examination General Appearance: No Apparent Distress, WD/WN Respiratory: Chest Non Tender, Lungs Clear, Normal Breath Sounds, No Accessory Muscle Use, No Respiratory Distress Cardiovascular: Regular Rate, Rhythm, No Edema, No Gallop, No JVD, No Murmur, Normal Peripheral Pulses Neurologic/Psychiatric: Alert, Oriented x3, No Motor/Sensory Deficits, Normal Mood/Affect Allergies: Coded Allergies: Iodinated Contrast Media (Verified Allergy, Intermediate, hives, 11/23/11) ibuprofen (Verified Allergy, Mild, UPSET STOMACH, 11/26/11) gabapentin (Verified Allergy, Unknown, 05/20/13) lisinopril (Verified Allergy, Unknown, 12/03/05) aspirin (Verified Adverse Reaction, Intermediate, anaphylactic, 11/23/11) Supervisory-Addendum Brief Verification & Attestation Participated in pt care: history, MDM, physical Personally performed: exam, history, MDM, supervision of care Care discussed with: Medical Student Procedures: n/a Results interpretation: Verified all documentation Verification and Attestation of Medical Student E/M Service A medical student performed and documented this service in my presence. I reviewed and verified all information documented by the medical student and made modifications to such information, when appropriate. I personally performed the physical exam and medical decision making. Bonnie Dugan Feb 27, 2019,22:20 [facility] Feb 27, 2019 12:26 BONNIE DUGAN DO Feb 27, 2019 22:20
--- NOTE | 2019-02-27 12:39 | NUR ---
ELIEZER JAIMES discharged to [facility]. SEVEN notified of discharge and report given to HIM. ELIEZER JAIMES belongings sent with HER. Skin dry and intact; PERIANNAL CHAFFING. Vital signs are stable at time of discharge. Condition is stable at time of discharge. Discharge instructions and copies of H&P, discharge summary, physician's order, lab reports, consultation reports, other dictated reports, diagnostic imaging reports, Advance Directive, eMAR, vital signs, intake and output sent with STAFF. Patient discharged from [facility] on 02/27/19 at 1220. ELIEZER JAIMES left floor via WHELCHAIR, accompanied by STAFF. ELIEZER JAIMES and family/DPOA notified and verbalize understanding of discharge to [facility].
[2019-02-27] MEDS ORDERED: ENOXAPARIN 40 MG/0.4 ML (LOVENOX) SYR SC SCH (21:00)
== END 2019-02-27 12:20 | DRG 641 ==
LOC: EDUNIT# 22:01 → ER 22:02 → 4TH 02-24 00:50
PROVIDERS: ADMIT Internal Medicine; ATTEND Internal Medicine
DX: E87.1 Hypo-osmolality and hyponatremia (principal); E86.0 Dehydration; R41.82 Altered mental status, unspecified; E87.8 Other disorders of electrolyte and fluid balance, not elsewhere classified; I11.9 Hypertensive heart disease without heart failure; G30.9 Alzheimer's disease, unspecified; F02.80 Dementia in other diseases classified elsewhere, unspecified severity, without behavioral disturbance, psychotic disturbance, mood disturbance, and anxiety; Z66 Do not resuscitate; E87.6 Hypokalemia; K59.09 Other constipation; E03.9 Hypothyroidism, unspecified; F41.9 Anxiety disorder, unspecified; F32.9 Major depressive disorder, single episode, unspecified; E11.65 Type 2 diabetes mellitus with hyperglycemia; R13.11 Dysphagia, oral phase; N28.9 Disorder of kidney and ureter, unspecified; I25.10 Atherosclerotic heart disease of native coronary artery without angina pectoris; E78.00 Pure hypercholesterolemia, unspecified; K21.9 Gastro-esophageal reflux disease without esophagitis; M81.0 Age-related osteoporosis without current pathological fracture; M19.91 Primary osteoarthritis, unspecified site; M54.9 Dorsalgia, unspecified; T50.2X5A Adverse effect of carbonic-anhydrase inhibitors, benzothiadiazides and other diuretics, initial encounter; Z95.5 Presence of coronary angioplasty implant and graft; Z87.891 Personal history of nicotine dependence; Z87.440 Personal history of urinary (tract) infections; W05.0XXA Fall from non-moving wheelchair, initial encounter; Y92.129 Unspecified place in nursing home as the place of occurrence of the external cause
CPT/HCPCS: 36415; 70450; 71045; 72125; 72128; 72131; 72170; 80053; 81000; 82962; 83735; 83880; 84439; 84443; 84484; 85007; 85025; 85027; 85610; 85730; 93005; 93041; 96374; 96375

== ENCOUNTER → 2019-03-01 | Outpatient (CLI) | payer MEDICARE, MEDICAID ==
[~2019-03-01] MED LIST changes: +ACET325T49 PO; +ATEN100T PO; +BENZ100C18 PO; +BENZ9.352 BC; +CETI10TA20 PO; +DOCU100T2 PO; +DONE10TA41 PO; +HYDR453.3 TP; +LEVO100T7 PO; +LIRA0.6P SC; +MEMA28CA5 PO; +METF-399 PO; +METO2.5T PO; +MIRT7.5T8 PO; +POTA10TA6 PO; +SENN-145 PO; +SERT50TA9 PO; +[UNRECOGNIZED DRUG - CODE] PO
== END ==
PROVIDERS: ATTEND Internal Medicine
DX: E87.1 Hypo-osmolality and hyponatremia (principal); E11.65 Type 2 diabetes mellitus with hyperglycemia; F03.90 Unspecified dementia, unspecified severity, without behavioral disturbance, psychotic disturbance, mood disturbance, and anxiety; K08.89 Other specified disorders of teeth and supporting structures; M62.81 Muscle weakness (generalized); F41.9 Anxiety disorder, unspecified; E03.9 Hypothyroidism, unspecified; E08.610 Diabetes mellitus due to underlying condition with diabetic neuropathic arthropathy; T78.40XA Allergy, unspecified, initial encounter; F32.89 Other specified depressive episodes; G30.9 Alzheimer's disease, unspecified; I10 Essential (primary) hypertension; K59.00 Constipation, unspecified
CPT/HCPCS: 87324; 87449

== ENCOUNTER → 2020-03-04 | Outpatient (CLI) | payer MEDICARE, MEDICAID ==
[~2020-03-04] MED LIST changes: -CETI10TA20 PO; +CETI10TA49 PO
[2020-03-04 20:29] LABS: BILIRUBIN,URINE NEGATIVE (NEGATIVE); COLOR,URINE YELLOW; GLUCOSE, URINE (UA) 3+ (NEGATIVE); KETONES,URINE NEGATIVE (NEGATIVE); LEUKOCYTE ESTERASE ,URINE NEGATIVE (NEGATIVE); NITRITE,URINE POSITIVE (NEGATIVE); PROTEIN,URINE NEGATIVE (NEGATIVE)
[2020-03-04 20:34] LABS: CLARITY,URINE SL CLOUDY
[2020-03-04 20:36] LABS: AMORPHOUS SEDIMENT,UR FEW AMOR URATES /LPF; BACTERIA,URINE MODERATE /HPF; SQUAMOUS EPITHELIAL CELL,UR 0-2 /HPF; WBC,URINE 25-50 /HPF
== END ==
PROVIDERS: ATTEND Internal Medicine
DX: Z01.89 Encounter for other specified special examinations (principal)
CPT/HCPCS: 81000; 87077; 87088; 87186